=== PATIENT | female | born 2000 | race Caucasian/White ===

== ENCOUNTER 2021-07-09 08:00 | Outpatient (CLI) | payer BC, OTHER ==
[2021-07-09 17:30] LABS: BILIRUBIN,URINE NEGATIVE (NEGATIVE); CLARITY,URINE CLOUDY (CLEAR); GLUCOSE, URINE (UA) NEGATIVE (NEGATIVE); KETONES,URINE (UA) TRACE mg/dL (NEGATIVE); LEUKOCYTE ESTERASE, URINE NEGATIVE (NEGATIVE); NITRITE,URINE NEGATIVE (NEGATIVE); OCCULT BLOOD,URINE NEGATIVE (NEGATIVE); PROTEIN,URINE NEGATIVE (NEGATIVE); UROBILINOGEN,URINE 0.2 (NORMAL) E.U./dL (NORMAL)
[2021-07-09 17:37] LABS: AMORPHOUS SEDIMENT,UR Marked /LPF; BACTERIA,URINE Few /HPF (None Seen); RBC,URINE None Seen /HPF (0-5); SQUAMOUS EPITHELIAL CELL,UR RARE Squamous (<= Few); WBC,URINE 0-3 /HPF (0-5)
== END 2021-07-17 18:08 | disposition home or self-care (01) ==
LOC: LAB.WC 08:00
PROVIDERS: ATTEND Obstetrics & Gynecology
DX: Z32.01 Encounter for pregnancy test, result positive (principal)
CPT/HCPCS: 81001; 87086

== ENCOUNTER 2021-07-15 11:06 | Outpatient (CLI) | payer BC, OTHER ==
[2021-07-15 18:12] LABS: BASOPHILS % (AUTO) 0.2 %; EOSINOPHILS # (AUTO) 0.1 10^3/uL (0.0-0.7); HCT - HEMATOCRIT 39.2 % (37.0-47.0); HGB - HEMOGLOBIN 12.6 g/dL (12.0-16.0); LYMPHOCYTES # (AUTO) 1.9 10^3/uL (1.5-3.5); LYMPHOCYTES % (AUTO) 20.8 %; MEAN CORPUSCULAR HEMOGLOBIN 27.7 pg (27.0-31.0); MEAN CORPUSCULAR HGB CONC 32.1 g/dL (32.0-36.0); MEAN CORPUSCULAR VOLUME 86.2 fL (81.0-99.0); MONOCYTES # (AUTO) 0.7 10^3/uL (0.0-1.0); MONOCYTES % (AUTO) 7.6 %; NEUTROPHILS # (AUTO) 6.2 10^3/uL (1.5-6.6); NEUTROPHILS % (AUTO) 70.1 %; PLT - PLATELET COUNT 298 10^3/uL (130-450); RED BLOOD COUNT 4.55 10^6/uL (4.20-5.40); WHITE BLOOD COUNT 8.9 x10^3/uL (4.8-10.8)
[2021-07-15 18:29] LABS: ALBUMIN 3.9 g/dL (3.2-5.5); ALBUMIN/GLOBULIN RATIO 1.1 (1.0-2.2); BILIRUBIN,TOTAL 0.7 mg/dL (0.2-1.0); CALCIUM 9.3 mg/dL (8.5-10.3); CREATININE 0.7 mg/dL (0.4-1.0); POTASSIUM 3.4 mmol/L (3.5-5.0); TOTAL PROTEIN 7.4 g/dL (6.7-8.2)
[2021-07-16 11:51] LABS: HIV AG/AB 4TH GEN NON-REACTIVE (NON-REACTIVE)
[2021-07-16 15:16] LABS: HEPATITIS C ANTIBODY NON-REACTIVE (NON-REACTIVE)
[2021-07-16 16:11] LABS: HEPATITIS B SURFACE ANTIGEN NON-REACTIVE (NON-REACTIVE)
== END 2021-07-15 11:07 | disposition home or self-care (01) ==
LOC: LAB.N 11:06
PROVIDERS: ATTEND Obstetrics & Gynecology
DX: O36.4XX0 Maternal care for intrauterine death, not applicable or unspecified (principal); R03.0 Elevated blood-pressure reading, without diagnosis of hypertension
CPT/HCPCS: 36415; 80053; 81599; 85025; 86147; 86592; 86762; 86787; 86803; 86850; 86900; 86901; 87340; 87389

== ENCOUNTER 2021-07-15 11:14 | Outpatient (CLI) | payer BC, OTHER | END 2021-07-15 11:15 | disposition home or self-care (01) | LOC: LAB.N 11:14 | PROVIDERS: ATTEND Obstetrics & Gynecology | DX: O36.4XX0 Maternal care for intrauterine death, not applicable or unspecified (principal); R03.0 Elevated blood-pressure reading, without diagnosis of hypertension; Z32.01 Encounter for pregnancy test, result positive | CPT/HCPCS: 36415; 80053; 81240; 81599; 85025; 85613; 85730; 86147; 86592; 86762; 86787; 86803; 86850; 86900; 86901; 87340; 87389 ==

== ENCOUNTER 2021-07-16 08:00 | Outpatient (CLI) | payer BC, OTHER ==
[2021-07-18 18:28] LABS: CREATININE,URINE 204.4 mg/dL
== END 2021-07-16 23:59 | disposition home or self-care (01) ==
LOC: LAB.N 08:00
PROVIDERS: ATTEND Obstetrics & Gynecology
DX: Z32.01 Encounter for pregnancy test, result positive (principal); R03.0 Elevated blood-pressure reading, without diagnosis of hypertension
CPT/HCPCS: 82570; 84156

== ENCOUNTER 2021-07-31 15:30 | Outpatient (CLI) | payer BC, OTHER ==
--- NOTE | 2021-08-02 09:58 | Ultrasound Report ---
PROCEDURE: OB First Trimester INDICATIONS: POSITIVE TEST OUTSIDE/PRIOR DATING DATA: Last menstrual period (LMP): 05/27/2021. LMP-based estimated date of delivery (MIRA): 03/03/2022. First dating scan (date and location): 07/31/2021. Estimated date of delivery (MIRA) from first dating scan: 03/03/2022. The below data below was generated using the ultrasound MIRA of 03/03/2022 TECHNIQUE: Real-time scanning was performed of the fetus and maternal pelvic organs, with image documentation. The patient declined transvaginal imaging. COMPARISON: None FINDINGS: Embryo: There is an intrauterine gestational sac seen, with a pole present, which measures 2.5 cm, which corresponds to an estimated gestational age of 9 weeks 2 days. cardiac activity i s seen, with a measured heart rate of 1787 bpm. Moderate perigestational/subchorionic hemorrhage ca n be seen, which measures 1.7 x 1.5 x 1.7 cm. Measurement variability in dating: +/- 4 weeks by LMP, +/- 7 days by mean sac diameter (use before 6 weeks gestation if crown-rump length not able to be measured), +/- 5 days by crown-rump length (6-12 weeks gestation). Maternal organs: Ovaries are within normal limits, with a left ovarian corpus luteum seen. IMPRESSION: Single live intrauterine . No significant discrepancy is found between the estimated gestational age based upon these images and the estimated gestational age based upon the given date of the last menstrual period. Moderate subchorionic hemorrhage. Close clinical follow-up with serial beta hCG measurements and serial ultrasound would be recommended , as clinically appropriate. Reviewed by: Nate Garcia MD on 08/02/2021 8:56 AM [facility] Approved by: Nate Garcia MD on 08/02/2021 8:56 AM [facility] Station ID: [id number]
== END 2021-07-31 15:31 | disposition home or self-care (01) ==
LOC: DI 15:30
PROVIDERS: ATTEND Obstetrics & Gynecology
DX: O20.8 Other hemorrhage in early pregnancy (principal); Z3A.09 9 weeks gestation of pregnancy

== ENCOUNTER 2021-08-07 08:00 | Outpatient (CLI) | payer BC, OTHER ==
[2021-08-08 20:09] LABS: CHLAMYDIA TRACHOMATIS DNA NEGATIVE (NEGATIVE); NEISSERIA GONORRHOEAE DNA NEGATIVE (NEGATIVE); TRICHOMONAS VAGINALIS DNA NEGATIVE (NEGATIVE)
== END 2021-08-07 23:59 ==
LOC: LAB.WC 08:00
PROVIDERS: ATTEND Obstetrics & Gynecology
DX: O09.90 Supervision of high risk pregnancy, unspecified, unspecified trimester (principal)
CPT/HCPCS: 87491; 87591; 87661

== ENCOUNTER 2021-08-29 16:45 | Outpatient (CLI) | payer BC, OTHER ==
[2021-08-29 21:22] LABS: ALBUMIN 3.6 g/dL (3.2-5.5); BILIRUBIN,TOTAL 0.5 mg/dL (0.2-1.0); CALCIUM 8.8 mg/dL (8.5-10.3); CREATININE 0.7 mg/dL (0.4-1.0); POTASSIUM 3.3 mmol/L (3.5-5.0); TOTAL PROTEIN 7.3 g/dL (6.7-8.2)
[2021-08-29 21:25] LABS: ESTIMATED AVERAGE GLUCOSE 94 mg/dL (70-100); HEMOGLOBIN A1c% 4.9 % (4.27-6.07)
== END 2021-08-29 16:46 | disposition home or self-care (01) ==
LOC: LAB.N 16:45
PROVIDERS: ATTEND Obstetrics & Gynecology
DX: O09.90 Supervision of high risk pregnancy, unspecified, unspecified trimester (principal); O16.9 Unspecified maternal hypertension, unspecified trimester; O36.4XX0 Maternal care for intrauterine death, not applicable or unspecified
CPT/HCPCS: 36415; 80053; 81240; 81241; 81599; 83036; 85300; 85613; 85730; 86147

== ENCOUNTER 2021-09-05 08:00 | Outpatient (CLI) | payer BC, OTHER ==
[2021-09-05 17:52] LABS: BILIRUBIN,URINE NEGATIVE (NEGATIVE); GLUCOSE, URINE (UA) NEGATIVE (NEGATIVE); KETONES,URINE (UA) TRACE mg/dL (NEGATIVE); LEUKOCYTE ESTERASE, URINE NEGATIVE (NEGATIVE); NITRITE,URINE NEGATIVE (NEGATIVE); OCCULT BLOOD,URINE NEGATIVE (NEGATIVE); PH,URINE 5.5 PH (5.0-7.5); PROTEIN,URINE NEGATIVE (NEGATIVE); UROBILINOGEN,URINE 0.2 (NORMAL) E.U./dL (NORMAL)
[2021-09-05 19:12] LABS: CLARITY,URINE CLOUDY (CLEAR)
[2021-09-05 19:21] LABS: RBC,URINE None Seen /HPF (0-5); SQUAMOUS EPITHELIAL CELL,UR NONE SEEN (<= Few); WBC,URINE 0-3 /HPF (0-5)
[2021-09-05 19:22] LABS: AMORPHOUS SEDIMENT,UR Marked /LPF; BACTERIA,URINE None Seen /HPF (None Seen)
== END 2021-09-05 23:59 | disposition home or self-care (01) ==
LOC: LAB.WC 08:00
PROVIDERS: ATTEND Obstetrics & Gynecology
DX: R10.30 Lower abdominal pain, unspecified (principal)
CPT/HCPCS: 81001; 87086

== ENCOUNTER 2021-10-15 09:45 | Outpatient (CLI) | payer BC, OTHER | END 2021-10-15 09:46 | disposition home or self-care (01) | LOC: LAB.N 09:45 | PROVIDERS: ATTEND Obstetrics & Gynecology | DX: O09.90 Supervision of high risk pregnancy, unspecified, unspecified trimester (principal) | CPT/HCPCS: 36415; 82950 ==

== ENCOUNTER 2021-10-18 09:59 | Outpatient (CLI) | payer BC, OTHER ==
--- NOTE | 2021-10-18 13:23 | Ultrasound Report ---
PROCEDURE: OB Detailed Eval INDICATIONS: [facility]PER[facility] OF [facility] OUTSIDE/PRIOR DATING DATA: Last menstrual period (LMP): 05/27/2021. LMP-based estimated date of delivery (MIRA): 03/03/2022. First dating scan (date and location): 07/31/2021. Estimated date of delivery (MIRA) from first dating scan: 03/03/2022. The below data below was generated using the ultrasound MIRA of 6722 TECHNIQUE: Real-time scanning was performed of the fetus, with image documentation and biometric measurements. COMPARISON: 07/31/2021 FINDINGS: General: A single live intrauterine gestation is present. Presentation: Vertex Placenta: Placental position is anterior, without previa. Amniotic fluid index: 12.9 cm, within normal limits for gestational age. (Largest pocket 3.7 cm) heart rate: 148 beats per minute. Maternal cervical canal: 5.7 cm long; normal length is 2.5 cm or more. biometrics: Biparietal diameter: 4.8 cm equals 20 weeks 3 days Head circumference: 17.8 cm he was 20 weeks 2 days Abdominal circumference: 14.2 cm equals 19 weeks 4 days Femur length: 3.6 cm equals 21 weeks 3 days Estimated gestational age from initial scan: 20 weeks 4 days Composite gestational age from present scan: 20 weeks 2 days Estimated weight and percentile: 353 g, 38th percentile Measurement variability in biometric dating: +/- 10 days from 12-20 weeks gestation, +/- 2 weeks from 20-30 weeks gestation, +/- 3 weeks at 30 weeks gestation or later. Anatomic survey: Neuro: Ventricles are normal at less than 10 mm. Cisterna magna is normal at 3-11 mm. Cerebellum i s normal in size and morphology. Face: The facial profile is not well seen, secondary to position. Spine: Not well seen. Heart: 4-chambered heart is present, with normal ventricular outflow tracts. Diaphragm: Diaphragm is intact. Stomach: Left-sided stomach is present. Kidneys: No hydronephrosis. Normal is less than 5 mm in 2nd trimester, less than 7 mm in 3rd trimester. Cord: 3 vessel cord has orthotopic insertion. Bladder: Normal in size. Extremities: All 4 extremities are visualized. IMPRESSION: Normal interval growth compared to the prior ultrasound examination. No anatomic abnormalities are identified. However, the spine and facial profile are not well se en, secondary to position. Reviewed by: Nate Garcia MD on 10/18/2021 12:21 PM [facility] Approved by: Nate Garcia MD on 10/18/2021 12:21 PM [facility] Station ID: [id number]
== END 2021-10-18 10:00 | disposition home or self-care (01) ==
LOC: DI 09:59
PROVIDERS: ATTEND Obstetrics & Gynecology
DX: O09.92 Supervision of high risk pregnancy, unspecified, second trimester (principal); Z3A.20 20 weeks gestation of pregnancy

== ENCOUNTER 2021-10-25 16:43 | Outpatient (CLI) | payer BC, OTHER ==
--- NOTE | 2021-10-26 08:14 | Ultrasound Report ---
PROCEDURE: OB F/U or Repeat INDICATIONS: SUPERVISION OF HIGH RISK OUTSIDE/PRIOR DATING DATA: Last menstrual period (LMP): 05/27/2021. LMP-based estimated date of delivery (MIRA): 03/03/2022. First dating scan (date and location): 07/31/2021. Estimated date of delivery (MIRA) from first dating scan: 03/03/2022. TECHNIQUE: Real-time scanning was performed of the fetus, with image documentation and biometric measurements. Endovaginal scanning: None COMPARISON: 08/18/2022 FINDINGS: General: A single living intrauterine gestation is present. Presentation: Vertex Placenta: Placental position is anterior, without previa. Amniotic fluid index: 11.6 cm, normal for gestational age. heart rate: 148 beats per minute. Maternal cervical canal: 7.3 cm long; normal length is 2.5 cm or more. Estimated gestational age from initial scan: 21 week 4 day. Other: spine, facial profile, face/lips/orbits , as well as the chest, stomach, kidneys and basia dder are well visualized and within normal limits. IMPRESSION: Single live intrauterine consistent with with a 21 week 4 day gestation Well-visualized unremarkable anatomy includes spine and facial profile Reviewed by: Connor Barreto MD on 10/26/2021 7:12 AM [place] Approved by: Connor Barreto MD on 10/26/2021 7:12 AM [place] Station ID: [id number]
== END 2021-10-25 16:44 | disposition home or self-care (01) ==
LOC: DI 16:43
PROVIDERS: ATTEND Obstetrics & Gynecology
DX: O09.92 Supervision of high risk pregnancy, unspecified, second trimester (principal); Z3A.21 21 weeks gestation of pregnancy

== ENCOUNTER 2021-10-30 21:35 | Outpatient (CLI) | payer BC, OTHER ==
[2021-10-30 21:58] VITALS: BP 117/68
[2021-10-30 22:22] LABS: BILIRUBIN,URINE NEGATIVE (NEGATIVE); GLUCOSE, URINE (UA) NEGATIVE (NEGATIVE); KETONES,URINE (UA) NEGATIVE (NEGATIVE); LEUKOCYTE ESTERASE, URINE NEGATIVE (NEGATIVE); NITRITE,URINE NEGATIVE (NEGATIVE); OCCULT BLOOD,URINE NEGATIVE (NEGATIVE); PROTEIN,URINE NEGATIVE (NEGATIVE); UROBILINOGEN,URINE 0.2 (NORMAL) E.U./dL (NORMAL)
[2021-10-30 22:35] LABS: BACTERIA,URINE Rare /HPF (None Seen); CLARITY,URINE CLEAR (CLEAR); RBC,URINE 0-5 /HPF (0-5); SQUAMOUS EPITHELIAL CELL,UR FEW Squamous (<= Few); WBC,URINE 0-3 /HPF (0-5)
--- NOTE | 2021-10-30 23:23 | PROVIDER PROGRESS NOTE ---
- HPI Current : Vital Signs Temperature 98.8 F 10/30/21 21:57 Heart Rate 110 H 10/30/21 21:57 Respiratory Rate 18 10/30/21 21:57 Blood Pressure 117/68 10/30/21 21:57 O2 Saturation 100 10/30/21 21:57 Temperature 98.8 F 10/30/21 22:21 Heart Rate 110 H 10/30/21 21:57 Respiratory Rate 18 10/30/21 21:57 Blood Pressure 117/68 10/30/21 21:57 O2 Saturation 100 10/30/21 21:57 - Procedures Procedure Details: ID: 21 yo at 22+2 wga here for assessment of labor. HPI: Patient reports that she had several runs of cramping that seemed to be worsening. Several contractions within a ten minute period with 2-3 episodes of 10 minutes. No LOF or VB. Endorses FM. No contractions at present. Hx of IUFD at 19 weeks further traumatized by complications at delivery. PNC: LMP:05/27/2021 MIRA BY LMP:03/03/2022 Initial U/S on 07/31 @ 9w 2d c/w LMP FINAL MIRA: 03/03/2022 hx IUFD: labs wnl -Possible uterine perforation with pp D&C -Request for outside previously sent CHTN: Monitoring at home. -Labetalol 100 mg po BID--> pt reduced dose to 50 mg po bid due to low DBPS O pos/Rubella : IMMUNE VZV: IMMUNE Genetic testing: Declined testing And MFM consult- confirmed FAS: 10/18/2021 anterior, 3VC, 5.7 CL, FAS wnl, need fu for spine and facies. her fu us was normal. FAS complete. 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 Safe at home FH: Family History of Other Medical Problems for Father, Essential Tremor Disorder; Parkinsonism - Entered On: 07/09/2021 Family History of Diabetes for Father - Entered On: 07/09/2021 Family History of Seizures for AuntMacie (paternal) - Entered On: 07/09/2021 Family History of Arthritis for Aunt - Entered On: 07/09/2021 Family History of Other Medical Problems for Aunt, Thereasa (paternal): Raynaud's phenomenon, adrenal gland exhaustion, appendicitis, arthritis Yue (paternal): nephritis, scleritis, ulcerative colitis, autoimmune hepatitis, thyroiditis, fibromyalgia, appendicitis, cholectomy, bronchiectasis, esophageal dysmotility, currently being tested for lupus and scleroderma. - Entered On: 07/09/2021 Family History of Other Cancer for Uncle, Prostate cancer x2 maternal uncles - Entered On: 07/09/2021 Family History of Other Cancer for Maternal Grandfather - Entered On: 07/09/2021 Family History of Breast Cancer for Paternal Grandmother - Entered On: 07/09/2021 Family History of Arthritis for Paternal Grandmother - Entered On: 07/09/2021 Family History of Kidney/Renal Disease for Paternal Grandmother, kidney cancer - Entered On: 07/09/2021 Family History of Arthritis for Paternal Grandfather, Rheumatoid - Entered On: 07/09/2021 Family History of Diabetes for Paternal Grandfather - Entered On: 07/09/2021 ROS: As per HPI, otherwise remaining systems are negative PE: VS: 98.8 110 117/68 18 100 GEN: NAD HEAD: NCAT EYES: No scleral icterus or conjunctival injection CV: RRR RESP: CTAB, normal effort ABD: S&NT/ND PSYCH: appropriate affect NEURO: alert and oriented, normal gait and coordination EXT: WWP SSE: visually closed and long per RN exam FORMAL US showed TVCL 3.4 (read images myself) FFN neg UA wnl FHT: 154 NST not performed; previable TOCO: quiet A/P: 21 yo at 22+2 wga here for assessment of labor. FALSE LABOR: -Reassuring physical exam -Neg FFN -TVCL>3 cm No evidence of cervical change Symptoms resolved Patient discharged to home with warning signs reviewed DX: False labor
--- NOTE | 2021-10-31 00:04 | Ultrasound Report ---
PROCEDURE: OB Limited INDICATIONS: contractions OUTSIDE/PRIOR DATING DATA: Last menstrual period (LMP): 05/27/2021. LMP-based estimated date of delivery (MIRA): 03/03/2022. First dating scan (date and location): 07/31/2021. Estimated date of delivery (MIRA) from first dating scan: 03/03/2022. The below data below was generated using the clinical and ultrasound MIRA of 03/03/2022 TECHNIQUE: Real-time scanning was performed of the fetus, with image documentation. COMPARISON: OB ultrasound 10/25/2021 FINDINGS: A single living intrauterine gestation is present. Presentation: Vertex Placenta: Placental position is anterior, without previa. Amniotic fluid index: 15.4 cm, within normal limits for gestational age. Largest pocket 4.2 cm heart rate: 157 beats per minutes. Maternal cervical canal: 3.4 cm long; normal length is 2.5 cm or more. Estimated gestational age from initial scan: 22 weeks 2 days. IMPRESSION: Single live intrauterine with ultrasound age of 22 weeks 2 days. Reviewed by: Bryanna Kan MD on 10/31/2021 12:03 AM PST Approved by: Bryanna Kan MD on 10/31/2021 12:03 AM PST Station ID: [id number]
[2021-10-31 00:15] LABS: BACTERIAL VAGINOSIS DNA NEGATIVE (NEGATIVE); CANDIDA GLABRATA DNA NEGATIVE (NEGATIVE); CANDIDA GROUP DNA NEGATIVE (NEGATIVE); CANDIDA KRUSEI DNA NEGATIVE (NEGATIVE); TRICHOMONAS VAGINALIS DNA NEGATIVE (NEGATIVE)
[2021-10-31 01:27] LABS: CHLAMYDIA TRACHOMATIS DNA NEGATIVE (NEGATIVE); NEISSERIA GONORRHOEAE DNA NEGATIVE (NEGATIVE); TRICHOMONAS VAGINALIS DNA NEGATIVE (NEGATIVE)
== END 2021-10-30 23:21 | disposition home or self-care (01) ==
LOC: WFO 21:35 → FBP 21:36 → WFO 23:21
PROVIDERS: ATTEND Obstetrics & Gynecology
DX: O47.02 False labor before 37 completed weeks of gestation, second trimester (principal); O09.292 Supervision of pregnancy with other poor reproductive or obstetric history, second trimester; Z3A.22 22 weeks gestation of pregnancy
CPT/HCPCS: 36415; 81001; 82731; 87086; 87491; 87591; 87661; 87801; 99215

== ENCOUNTER 2021-11-09 07:54 | Outpatient (CLI) | payer BC, OTHER ==
--- NOTE | 2021-11-09 10:49 | Ultrasound Report ---
PROCEDURE: Right upper quadrant ultrasound INDICATIONS: RIGHT UPPER QUAD ABD PAIN TECHNIQUE: Real-time focused scanning was performed of the abdomen, with image documentation. COMPARISON: None FINDINGS: Liver: Normal is size and echotexture. No evidence of focal mass lesion. No intra hepatic biliary ductal dilatation. Gallbladder: Sonolucent without cholelithiasis. No gallbladder wall thickening. No pericholecystic fluid or Blevins's sign. Common Bile Duct: 3 mm. Pancreas: Unremarkable as visualized. Right Kidney: Appropriate in size and echotexture. No evidence of hydronephrosis. No shadowing calc alejandra. No solid or cystic mass lesion. IMPRESSION: Unremarkable right upper quadrant ultrasound Reviewed by: Connor Barreto MD on 11/09/2021 9:47 AM [place] Approved by: Connor Barreto MD on 11/09/2021 9:47 AM [facility] Station ID: [id number]
== END 2021-11-09 07:55 | disposition home or self-care (01) ==
LOC: DI 07:54
PROVIDERS: ATTEND Obstetrics & Gynecology
DX: O99.891 Other specified diseases and conditions complicating pregnancy (principal); R10.11 Right upper quadrant pain; Z3A.01 Less than 8 weeks gestation of pregnancy

== ENCOUNTER 2021-12-22 11:54 | Outpatient (CLI) | payer BC, OTHER ==
[2021-12-22 18:01] LABS: HCT - HEMATOCRIT 34.5 % (37.0-47.0); HGB - HEMOGLOBIN 11.5 g/dL (12.0-16.0); MEAN CORPUSCULAR HEMOGLOBIN 28.3 pg (27.0-31.0); MEAN CORPUSCULAR HGB CONC 33.3 g/dL (32.0-36.0); MEAN PLATELET VOLUME 10.4 fL (7.9-10.8); RED BLOOD COUNT 4.06 10^6/uL (4.20-5.40); RED CELL DISTRIBUTION WIDTH 12.6 % (12.0-15.0)
== END 2021-12-22 11:55 | disposition home or self-care (01) ==
LOC: LAB.N 11:54
PROVIDERS: ATTEND Obstetrics & Gynecology
DX: Z36.89 Encounter for other specified antenatal screening (principal)
CPT/HCPCS: 36415; 82950; 85027

== ENCOUNTER 2022-01-06 16:55 | Outpatient (CLI) | payer BC, OTHER ==
--- NOTE | 2022-01-07 17:05 | Ultrasound Report ---
PROCEDURE: OB F/U or Repeat INDICATIONS: SUPERVISION OF HIGH RISK OUTSIDE/PRIOR DATING DATA: Last menstrual period (LMP): 05/27/2021. LMP-based estimated date of delivery (MIRA): 03/03/2022. First dating scan (date and location): 07/31/2021. Estimated date of delivery (MIRA) from first dating scan: 03/03/2022. The below data below was generated using the ultrasound MIRA of 03/03/2022 TECHNIQUE: Real-time scanning was performed of the fetus, with image documentation and biometric measurements. COMPARISON: None. FINDINGS: General: A single living intrauterine gestation is present. Presentation: Cephalic Placenta: Placental position is anterior, without previa. Amniotic fluid index: 13.6 cm, within normal limits for gestational age. heart rate: 141 beats per minute. Maternal cervical canal: 4.2 cm long; normal length is 2.5 cm or more. biometrics: Biparietal diameter: 8.09 cm, 32 weeks 3 days Head circumference: 29.55 cm, 32 weeks 5 days Abdominal circumference: 27 25 cm, 31 weeks 6 days Femur length: 6.25 cm, 32 weeks 3 days Estimated gestational age from initial scan: 32 weeks 0 days Composite gestational age from present scan: 32 weeks 3 days Estimated weight and percentile: 1917 g, 44.3% Measurement variability in biometric dating: +/- 10 days from 12-20 weeks gestation, +/- 2 weeks from 20-30 weeks gestation, +/- 3 weeks at 30 weeks gestation or more. Other: Not applicable. IMPRESSION: 1. Living third trimester intrauterine . Ultrasound age is 3 days greater than clinical age based on both LMP and initial ultrasound. No sonographic evidence of complications. Reviewed by: Lucio Franklin MD on 01/07/2022 5:04 PM PDT Approved by: Lucio Franklin MD on 01/07/2022 5:04 PM PDT Station ID: [id number]
== END 2022-01-06 16:56 | disposition home or self-care (01) ==
LOC: DI 16:55
PROVIDERS: ATTEND Obstetrics & Gynecology
DX: O09.93 Supervision of high risk pregnancy, unspecified, third trimester (principal); O16.3 Unspecified maternal hypertension, third trimester; Z3A.32 32 weeks gestation of pregnancy

== ENCOUNTER 2022-01-14 13:59 | Outpatient (CLI) | payer BC, OTHER ==
[2022-01-14 14:10] VITALS: BP 143/75
[2022-01-14 15:24] LABS: BILIRUBIN,URINE NEGATIVE (NEGATIVE); GLUCOSE, URINE (UA) NEGATIVE (NEGATIVE); KETONES,URINE (UA) NEGATIVE (NEGATIVE); LEUKOCYTE ESTERASE, URINE NEGATIVE (NEGATIVE); NITRITE,URINE NEGATIVE (NEGATIVE); OCCULT BLOOD,URINE NEGATIVE (NEGATIVE); PROTEIN,URINE NEGATIVE (NEGATIVE); UROBILINOGEN,URINE 0.2 (NORMAL) E.U./dL (NORMAL)
[2022-01-14 15:27] LABS: CLARITY,URINE CLEAR (CLEAR)
[2022-01-14 15:36] LABS: RUPTURE OF MEMBRANES PLUS NEGATIVE (NEGATIVE)
--- NOTE | 2022-01-14 16:38 | Ultrasound Report ---
PROCEDURE: OB Limited INDICATIONS: leakage of fluid TECHNIQUE: Real-time scanning was performed of the fetus, with image documentation. Endovaginal scanning: Not performed COMPARISON: 01/06/2022 FINDINGS: A single living intrauterine gestation is present. Presentation: Cephalic Placenta: Placental position is anterior, without previa. Amniotic fluid index: 12.7 cm, normal for gestational age and decreased slightly from 13.6 cm on 01/06 exam. heart rate: 147 beats per minutes. Maternal cervical canal: 3.7 cm long; normal length is 2.5 cm or more. IMPRESSION: Single live intrauterine gestation. CODEY is normal, all though slightly decreased from 13.6cm on the prior study. Reviewed by: Preston Navarrete MD on 01/14/2022 4:36 PM PDT Approved by: Preston Navarrete MD on 01/14/2022 4:36 PM PDT Station ID: [id number]
[2022-01-14 17:09] LABS: BACTERIAL VAGINOSIS DNA NEGATIVE (NEGATIVE); CANDIDA KRUSEI DNA NEGATIVE (NEGATIVE)
[2022-01-14 17:10] LABS: CANDIDA GLABRATA DNA NEGATIVE (NEGATIVE); CANDIDA GROUP DNA NEGATIVE (NEGATIVE); TRICHOMONAS VAGINALIS DNA NEGATIVE (NEGATIVE)
[2022-01-14 23:37] LABS: CHLAMYDIA TRACHOMATIS DNA NEGATIVE (NEGATIVE); NEISSERIA GONORRHOEAE DNA NEGATIVE (NEGATIVE)
--- NOTE | 2022-01-23 16:17 | PROVIDER PROGRESS NOTE ---
- HPI Chief Complaint: Labor Check Current : Current EDU 03/03/22 Gestation 33 Weeks and 1 Days 2 Para 0 Vital Signs Temperature 98.6 F 01/14/22 14:08 Heart Rate 105 H 01/14/22 14:08 Respiratory Rate 22 01/14/22 14:08 Blood Pressure 143/75 H 01/14/22 14:08 O2 Saturation 99 01/14/22 14:08 Temperature 98.6 F 01/14/22 14:10 Heart Rate 105 H 01/14/22 14:08 Respiratory Rate 22 01/14/22 14:08 Blood Pressure 143/75 H 01/14/22 14:08 O2 Saturation 99 01/14/22 14:08 - Procedures OB Procedure Performed: NST NST Procedure: NST Procedure Start Date 01/14/22 Start Time 14:10 Stop Time 15:30 Vibroacoustic Stimulation Used No Patient States Movement Yes EFM 150 mod damaso 15x15 accels no decels TOCO: irritability Service Date of procedure: 01/14/22 Procedure Details: ID: Patient is a 21 yo at 33+1 wga with complicated by CHTN here with back pain, abdominal pain, and increased vaginal discharge concerning for labor. HPI: Patient reports ongoing back and abdominal pain with increased vaginal discharge. No gross loss of fluid and no on-going fluid loss. No VB. Endorses FM. Has CHTN with mildly elevated blood pressures consistent with baseline. Taking labetalol 50 mg po bid. No LANDEROS/vision change/RUQ pain. PNC: LMP:05/27/2021 MIRA BY LMP:03/03/2022 Initial U/S on 07/31 @ 9w 2d c/w LMP FINAL MIRA: 03/03/2022 hx IUFD: labs wnl -Possible uterine perforation with pp D&C -Request for outside previously sent [place] anemia: once daily iron and vit C ordered CHTN: Monitoring at home. -Labetalol 100 mg po BID--> pt reduced dose to 50 mg po bid due to low DBPS -Ordered us for growth at 32 weeks on 12/10/21 for week for 01/10/22 -Twice weekly NST/BPP ordered. O pos/Rubella : IMMUNE VZV: IMMUNE Genetic testing: Declined testing And MFM consult- confirmed FAS: 10/18/2021 anterior, 3VC, 5.7 CL, FAS wnl, need fu for spine and facies. her fu us was normal. FAS complete.GIRL- [place] Glucola - Early glucola 103, 1 hour gtt 117 Influenza: declines Covid vaccine: declines TDAP:12/10/21 GBS:at 36 weeks HSV: Denies self and partner Breast pump Rx: given 11/26/21 MOD: anticipate , Jose Manuel. 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 Rhianna has immediate family in [place]. 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 Safe at home FH: Family History of Other Medical Problems for Father, Essential Tremor Disorder; Parkinsonism Family History of Diabetes for Father Family History of Seizures for Aunt, Macie (paternal) Family History of Arthritis for Aunt Family History of Other Medical Problems for Aunt, Thereasa (paternal): Raynaud's phenomenon, adrenal gland exhaustion, appendicitis, arthritis Yue (paternal): nephritis, scleritis, ulcerative colitis, autoimmune hepatitis, thyroiditis, fibromyalgia, appendicitis, cholectomy, bronchiectasis, esophageal dysmotility, currently being tested for lupus and scleroderma. - Family History of Other Cancer for Uncle, Prostate cancer x2 maternal uncles Family History of Other Cancer for Maternal Grandfather Family History of Breast Cancer for Paternal Grandmother Family History of Arthritis for Paternal Grandmother Family History of Kidney/Renal Disease for Paternal Grandmother, kidney cancer Family History of Arthritis for Paternal Grandfather, Rheumatoid Family History of Diabetes for Paternal Grandfather ROS: As per HPI, otherwise remaining systems are negative. PE: VS: 98.6 105 22 99% 143/75 GEN: NAD HEAD: NCAT EYES: No scleral icterus or conjunctival injection CV: RRR RESP: CTAB, normal effort ABD: S&NT/ND PSYCH: appropriate affect NEURO: alert and oriented, normal gait and coordination EXT: WWP SVE: Cervix high and unreachable per RN exam FORMAL US: TVCL 3.7 cm CODEY wnl FFN neg Vaginitis panel neg for yeast/BV/trich GCCT neg GBS neg Urinanalysis wnl A/P: Patient is a 21 yo at 33+1 wga with complicated by CHTN here with back pain, abdominal pain, and increased vaginal discharge concerning for labor. FALSE LABOR: Reassured patient regarding negative FFN and cervical length that is longer than expected for gestational age -Can use magnesium for constipation and as mild muscle relaxant -Warning signs reviewed -No evidence of vaginal or urinary infection VAGINAL DISCHARGE: -Normal CODEY and no evidence of LOF -GCCT and vaginitis panel reassuring FWB: vertex by formal US -Cat I tracing Warning signs reviewed Discharged to home with routine OB fu DX: False labor IUP at 33+1 wga CHTN DOS: 01/14/22 NST read: 01/14/22
== END 2022-01-14 16:58 | disposition home or self-care (01) ==
LOC: WFO 13:59 → FBP 14:00 → WFO 16:58
PROVIDERS: ATTEND Obstetrics & Gynecology
DX: O47.03 False labor before 37 completed weeks of gestation, third trimester (principal); Z3A.33 33 weeks gestation of pregnancy; O99.891 Other specified diseases and conditions complicating pregnancy; N89.8 Other specified noninflammatory disorders of vagina; O16.3 Unspecified maternal hypertension, third trimester; O99.013 Anemia complicating pregnancy, third trimester
CPT/HCPCS: 36415; 59025; 81001; 81003; 81514; 82731; 84112; 87086; 87491; 87591; 87661; 87797; 99215

== ENCOUNTER 2022-01-16 13:49 | Outpatient (CLI) | payer BC, OTHER ==
[2022-01-16 15:22] VITALS: BP 134/67
--- NOTE | 2022-01-16 17:40 | PROCEDURE REPORT ---
- HPI Current EDU 03/03/22 Gestation 33 Weeks and 3 Days 2 Para 0 Vital Signs Temperature 97.6 F L 01/16/22 13:58 Heart Rate 98 01/16/22 13:58 Respiratory Rate 17 01/16/22 13:58 Blood Pressure 134/67 H 01/16/22 13:58 Temperature 97.6 F L 01/16/22 14:10 Heart Rate 98 01/16/22 14:10 Respiratory Rate 17 01/16/22 14:10 Blood Pressure 134/67 H 01/16/22 14:10 O2 Saturation 98 01/16/22 14:10 - NST Procedure NST Procedure Start Date 01/16/22 Start Time 14:10 Stop Time 14:50 Vibroacoustic Stimulation Used No Patient States Movement Yes - Results and Plan Plan: Patient is a 21-year-old -0-1-0 at 33 weeks 3 days gestation here for scheduled NST. NST Performed 01/16/2022 NST Read 01/16/2022 FHT: 135 bpm baseline, moderate variability, accelerations resin, no decelerations. [place]: Quiescent Diagnosis 33 weeks gestation Chronic hypertension controlled with medications History of IUFD Continue with twice weekly NST.
== END 2022-01-16 15:15 | disposition home or self-care (01) ==
LOC: WFO 13:49 → FBP 13:53 → WFO 15:15
PROVIDERS: ATTEND Obstetrics & Gynecology
DX: O16.3 Unspecified maternal hypertension, third trimester (principal); Z3A.33 33 weeks gestation of pregnancy
CPT/HCPCS: 59025

== ENCOUNTER 2022-01-20 19:35 | Outpatient (CLI) | payer BC, OTHER ==
[2022-01-20 19:59] VITALS: BP 123/66
--- NOTE | 2022-01-21 15:23 | Ultrasound Report ---
PROCEDURE: OB Bio w/Non Stress INDICATIONS: CHRONIC HYPERTENSION COMPLICATIND /OR REASON FOR CARE DURING OUTSIDE/PRIOR DATING DATA: Last menstrual period (LMP): 05/27/2021. LMP-based estimated date of delivery (MIRA): 03/03/2022. First dating scan (date and location): 07/31/2021. Estimated date of delivery (MIRA) from first dating scan: 03/03/2022. TECHNIQUE: Real-time scanning was performed of the fetus, with image documentation and biometric ashu surements. Biophysical profile was also obtained. COMPARISON: OB ultrasound 07/31/2021, 01/14/2022 FINDINGS: General: A single living intrauterine gestation is present. Presentation: Vertex Placenta: Placental position is anterior, without previa. Amniotic fluid index: 11.2 cm, within normal limits for gestational age. Largest pocket 4.2 cm heart rate: 141 beats per minute. Maternal cervical canal: Not evaluatedor more. biometrics: Estimated gestational age from initial scan: 34 weeks 0 days Biophysical profile: Tone: 2 points. Movement: 2 points. Respiration: 2 points. Largest pocket of fluid: 2 points. Umbilical artery Doppler: 2.4, 2.8, 2.6 IMPRESSION: Single live intrauterine with gestational age of 34 weeks 0 days. BPP 8 out of 8. Reviewed by: Bryanna Kan MD on 01/21/2022 3:22 PM PDT Approved by: Bryanna Kan MD on 01/21/2022 3:22 PM PDT Station ID: [id number]
--- NOTE | 2022-01-22 11:03 | PROCEDURE REPORT ---
- HPI Current EDU 03/03/22 Gestation 34 Weeks and 0 Days 2 Para 0 Vital Signs Temperature 98.2 F 01/20/22 19:51 Heart Rate 106 H 01/20/22 19:51 Respiratory Rate 16 01/20/22 19:51 Blood Pressure 123/66 01/20/22 19:51 Temperature 98.2 F 01/20/22 19:51 Heart Rate 106 H 01/20/22 19:51 Respiratory Rate 16 01/20/22 19:51 Blood Pressure 123/66 01/20/22 19:51 O2 Saturation - NST Procedure NST Procedure Start Date 01/20/22 Start Time 19:47 Stop Time 20:22 Vibroacoustic Stimulation Used No Patient States Movement Yes - Results and Plan Plan: Patient is a 21-year-old -0-1-0 at 34 weeks 0 days gestation here for scheduled NST. NST Performed 01/20/2022 NST Read 01/20/2022 FHT: 140 bpm baseline, moderate variability, accelerations present, no decelerations. [place]: Quiescent Diagnosis 34 weeks gestation Chronic hypertension controlled medications History of IUFD Continue with twice weekly NST.
== END 2022-01-20 20:28 | disposition home or self-care (01) ==
LOC: WFO 19:35 → FBP 19:42 → DI 20:28
PROVIDERS: ATTEND Obstetrics & Gynecology
DX: O10.913 Unspecified pre-existing hypertension complicating pregnancy, third trimester (principal); O09.293 Supervision of pregnancy with other poor reproductive or obstetric history, third trimester; Z3A.34 34 weeks gestation of pregnancy; Z79.899 Other long term (current) drug therapy
CPT/HCPCS: 59025

== ENCOUNTER 2022-01-23 13:58 | Outpatient (CLI) | payer BC, OTHER ==
[2022-01-23 14:12] VITALS: BP 129/84
--- NOTE | 2022-01-23 16:27 | Labor Flowsheet ---
Labor Flowsheet Datetime Report Generated by CPN: 01/23/2022 16:26 Datetime: 01/23/2022 14:09 VITAL SIGNS NBP Sys/Elizabeth/Mean (mmHg): 129 : 84 : 93 Pulse: 123 Datetime: 01/20/2022 19:59 SpO2 (%): 100 Datetime: 10/30/2021 21:52 ASSESSMENT A Comments: Doppler FHR 154bpm
--- NOTE | 2022-01-23 16:56 | Ultrasound Report ---
PROCEDURE: OB Biophysical Profile INDICATIONS: nonreactive stress test OUTSIDE/PRIOR DATING DATA: Last menstrual period (LMP): 05/27/2021. LMP-based estimated date of delivery (MIRA): 03/03/2022. First dating scan (date and location): 07/31/2021. Estimated date of delivery (MIRA) from first dating scan: 03/03/2022. TECHNIQUE: Real-time scanning was performed of the fetus, with image documentation. Biophysical pro file was also obtained. Endovaginal scanning: Not indicated COMPARISON: 01/20/2022, 01/14/2022, 01/06/2022, 10/30/2021. FINDINGS: General: A single living intrauterine gestation is present. Presentation: Vertex Placenta: Placental position is anterior, without previa. Amniotic fluid index: 10.2 cm, normal for gestational age. heart rate: 157 beats per minute. Maternal cervical canal : Not evaluated. Estimated gestational age from initial scan: 34 weeks, 3 days. Biophysical profile: Tone: 2 points. Movement: 2 points. Respiration: 2 points. Largest pocket of fluid: 2 points. facial profile is well visualized and is within normal limits. IMPRESSION: 1. Single live intrauterine gestation with fetus in vertex presentation. heart rate is 148 bpm. Normal amount of amniotic fluid. 2. biophysical profile score is 8 out of 8. 3. facial profile isn't well visualized on the current study and is within normal limits. Reviewed by: Nitin Wells MD on 01/23/2022 4:55 PM PDT Approved by: Nitin Wells MD on 01/23/2022 4:55 PM PDT Station ID: [id number]
--- NOTE | 2022-01-23 17:34 | PROCEDURE REPORT ---
- HPI Diagnosis/Indication for NST: Gestational Hypertension Vital Signs Temperature 97.9 F 01/23/22 14:00 Heart Rate 120 H 01/23/22 14:00 Respiratory Rate 18 01/23/22 14:00 Blood Pressure 129/84 H 01/23/22 14:00 Temperature 97.9 F 01/23/22 14:00 Heart Rate 120 H 01/23/22 14:00 Respiratory Rate 18 01/23/22 14:00 Blood Pressure 129/84 H 01/23/22 14:00 O2 Saturation - NST Procedure NST Procedure Start Time 14:03 Stop Time 14:46 - Results and Plan Plan: Patient is a 21-year-old -0-1-0 at 34 weeks 3 days gestation here for scheduled NST. NST Performed 01/23/2022 NST Read 01/23/2022 FHT: 135 bpm baseline, moderate variability, accelerations present, no decelerations. [place]: Quiescent Accels no initially present; later cat I after several attempts at VAS Given difficulty with obtaining reactive tracing, proceeded with BPP BPP 8/8 Reassuring assessment Diagnosis 34 weeks gestation Chronic hypertension controlled medications History of IUFD Continue with twice weekly NST.
== END 2022-01-23 15:50 | disposition home or self-care (01) ==
LOC: WFO 13:58 → FBP 14:01 → WFO 15:50
PROVIDERS: ATTEND Obstetrics & Gynecology
DX: O13.3 Gestational [pregnancy-induced] hypertension without significant proteinuria, third trimester (principal); Z3A.34 34 weeks gestation of pregnancy; Z87.59 Personal history of other complications of pregnancy, childbirth and the puerperium
CPT/HCPCS: 59025; 99214

== ENCOUNTER 2022-01-27 13:33 | Outpatient (CLI) | payer BC, OTHER ==
[2022-01-27 13:57] VITALS: BP 116/86
--- NOTE | 2022-01-27 14:09 | PROCEDURE REPORT ---
- HPI Current EDU 03/03/22 Gestation 35 Weeks and 0 Days 2 Para 0 Vital Signs Temperature 97.9 F 01/27/22 13:40 Heart Rate 120 H 01/27/22 13:40 Respiratory Rate 18 01/27/22 13:40 Blood Pressure 116/86 H 01/27/22 13:40 Temperature 97.9 F 01/27/22 13:40 Heart Rate 120 H 01/27/22 13:40 Respiratory Rate 18 01/27/22 13:40 Blood Pressure 116/86 H 01/27/22 13:40 O2 Saturation - NST Procedure NST Procedure Start Date 01/27/22 Start Time 13:43 Stop Time 14:06 Vibroacoustic Stimulation Used No Patient States Movement Yes - Results and Plan Plan: Patient is a 21-year-old -0-1-0 at 35 weeks 0 days gestation here for scheduled NST. NST Performed 01/27/2022 NST Read 01/27/2022 FHT: 145 bpm baseline, moderate variability, accelerations present, no decelerations. [place]: Quiescent Diagnosis 35 weeks gestation Chronic hypertension controlled on medications History of IUFD Continue with twice weekly NST.
--- NOTE | 2022-01-27 17:27 | Ultrasound Report ---
PROCEDURE: OB Biophysical Profile INDICATIONS: HYPERTENSION OUTSIDE/PRIOR DATING DATA: Last menstrual period (LMP): 05/27/2021. LMP-based estimated date of delivery (MIRA): 03/03/2022. First dating scan (date and location): 07/31/2021. Estimated date of delivery (MIRA) from first dating scan: 03/03/2022. The below data below was generated using the ultrasound MIRA of 03/03/2022 TECHNIQUE: Real-time scanning was performed of the fetus, with image documentation and biometric ashu surements. Biophysical profile was also obtained. COMPARISON: OB ultrasound 07/31/2021, 01/23/2022 FINDINGS: General: A single living intrauterine gestation is present. Presentation: Vertex Placenta: Placental position is anterior, without previa. Amniotic fluid index: 3.9 cm, decreased for gestational age. Largest pocket measures 3.9 cm. It is noted prior composite CODEY was 10.2 cm with largest pocket 4.9 cm on 01/23/2022. heart rate: 147 beats per minute. Maternal cervical canal: 3.9 cm long; normal length is 2.5 cm or more. biometrics: Estimated gestational age from initial scan: 35 weeks 0 days . Biophysical profile: Tone: 2 points. Movement: 2 points. Respiration: 2 points. Largest pocket of fluid: 2 points. Umbilical artery Doppler: 2.9, 2.1, 2.2 IMPRESSION: Single live intrauterine with ultrasound gestational age of 35 weeks 0 days. CODEY has decreased compared to prior exam, with current value is consistent with oligohydramnios. Shor t interval imaging follow-up is recommended. Reviewed by: Bryanna Kan MD on 01/27/2022 4:26 PM BECKY Approved by: Bryanna Kan MD on 01/27/2022 4:26 PM BECKY Station ID: [id number]
== END 2022-01-27 14:05 | disposition home or self-care (01) ==
LOC: WFO 13:33 → FBP 13:35 → WFO 14:05 → FBP 14:15 → WFO 14:15
PROVIDERS: ATTEND Obstetrics & Gynecology
DX: O16.3 Unspecified maternal hypertension, third trimester (principal); O09.293 Supervision of pregnancy with other poor reproductive or obstetric history, third trimester; Z3A.35 35 weeks gestation of pregnancy
CPT/HCPCS: 59025

== ENCOUNTER 2022-01-28 12:01 | Outpatient (CLI) | payer BC, OTHER ==
[2022-01-28 12:18] VITALS: BP 125/55
[2022-01-28 13:22] LABS: RUPTURE OF MEMBRANES PLUS NEGATIVE (NEGATIVE)
--- NOTE | 2022-01-30 14:01 | PROVIDER PROGRESS NOTE ---
- HPI Chief Complaint: Leakage of vaginal fluid Current : Current EDU 03/03/22 Gestation 35 Weeks and 1 Days 2 Para 0 Vital Signs Temperature 98.6 F 01/28/22 12:12 Heart Rate 103 H 01/28/22 12:12 Respiratory Rate 16 01/28/22 12:12 Blood Pressure 125/55 L 01/28/22 12:12 Temperature 98.6 F 01/28/22 14:33 Heart Rate 103 H 01/28/22 14:33 Respiratory Rate 16 01/28/22 14:33 Blood Pressure 125/55 L 01/28/22 14:33 O2 Saturation - Procedures OB Procedure Performed: NST NST Procedure: NST Procedure Start Date 01/28/22 Start Time 12:30 Stop Time 12:52 Vibroacoustic Stimulation Used No Patient States Movement Yes EFM: 140 mod damaso 15x15 accels no decels TOCO: quiet Service Date of procedure: 01/28/22 - Plan Plan: ID: Patient is a 21 yo at 35+1 wga who presents for assessment of membrane status in the setting of new onset oligohydramnios. HPI: Patient had a BPP on 01/27/22 that showed an CODEY of 3.9. Total BPP was 6/8 based on fluid levels. She was contacted by the provider who recommended that she be evaluated for leakage of fluid. Patient reports that she is having an increase in watery dischange and has been changing her her underwear twice a day. No large gushes of fluid. She is not soaking clothign or bedding. Does not passively have a trickle. No contractions or VB. Endorses FM. PNC: LMP:05/27/2021 MIRA BY LMP:03/03/2022 Initial U/S on 07/31 @ 9w 2d c/w LMP FINAL MIRA: 03/03/2022 hx IUFD: labs wnl -Possible uterine perforation with pp D&C -Request for outside previously sent Bordeline anemia: once daily iron and vit C ordered CHTN: Monitoring at home. -Labetalol 100 mg po BID--> pt reduced dose to 50 mg po bid due to low DBPS -Ordered us for growth at 32 weeks on 12/10/21 for week for 01/10/22 EFW 44.3% on 01/06/22 -Twice weekly NST/BPP ordered. O pos/Rubella : IMMUNE VZV: IMMUNE Genetic testing: Declined testing And MFM consult- confirmed FAS: 10/18/2021 anterior, 3VC, 5.7 CL, FAS wnl, need fu for spine and facies. her fu us was normal. FAS complete.GIRL- [place]iana Glucola - Early glucola 103, 1 hour gtt 117 Influenza: declines Covid vaccine: declines TDAP:12/10/21 GBS:at 36 weeks- will re draw given collection at 34 weeks will prior to iOL at 39 weeks HSV: Denies self and partner Breast pump Rx: given 11/26/21 MOD: anticipate , Jose Manuel. 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 [employer] No JOSE Safe at home Family History Summary: Family History Reviewed: 08/07/2021 Medical Problems for Father, Essential Tremor Disorder; Parkinsonism Family History of Diabetes for Father Family History of Seizures for Aunt, Macie (paternal) Family History of Arthritis for Aunt Family History of Other Medical Problems for Aunt, Tanikaasa (paternal): Raynaud's phenomenon, adrenal gland exhaustion, appendicitis, arthritis Yue (paternal): nephritis, scleritis, ulcerative colitis, autoimmune hepatitis, thyroiditis, fibromyalgia, appendicitis, cholectomy, bronchiectasis, esophageal dysmotility, currently being tested for lupus and scleroderma. - Family History of Other Cancer for Uncle, Prostate cancer x2 maternal uncles Family History of Other Cancer for Maternal Grandfather Family History of Breast Cancer for Paternal Grandmother Family History of Arthritis for Paternal Grandmother Family History of Kidney/Renal Disease for Paternal Grandmother, kidney cancer ROS: per HPI, otherwise remaining systems are negative. PE: VS: 98.6 103 125/55 16 GEN: NAD HEAD: NCAT EYES: No scleral icterus or conjunctival injection CV: mild tachycardia RESP: normal effort ABD: S&NT/ND PSYCH: appropriate affect NEURO: alert and oriented, normal gait and coordination EXT: WWP PELVIC: No gross LOF. Neg pooling per RN exam ROM+ negative EFM 140 mod damaso 15x15 accels no decels TOCO: quiet A/P: Patient is a 21 yo at 35+1 wga who presents for assessment of membrane status in the setting of new onset oligohydramnios. ROM+ negative No physical evidence of membrane rupture Cont with twice weekly NST and weekly BPP Cat I tracing. DOS: 01/28/22 NST reaad 01/28/22 DX: IUP at 35+1 wga CHTN oligohydramnios
== END 2022-01-28 14:15 | disposition home or self-care (01) ==
LOC: WFO 12:01 → FBP 12:03 → WFO 14:15
PROVIDERS: ATTEND Obstetrics & Gynecology
DX: N89.8 Other specified noninflammatory disorders of vagina (principal); O41.03X0 Oligohydramnios, third trimester, not applicable or unspecified; O99.013 Anemia complicating pregnancy, third trimester; O16.3 Unspecified maternal hypertension, third trimester; Z3A.35 35 weeks gestation of pregnancy
CPT/HCPCS: 59025; 84112; 99215

== ENCOUNTER 2022-01-30 13:52 | Outpatient (CLI) | payer BC, OTHER ==
[2022-01-30 14:15] VITALS: BP 116/71
[2022-01-30 15:22] LABS: RUPTURE OF MEMBRANES PLUS NEGATIVE (NEGATIVE)
--- NOTE | 2022-01-30 16:13 | Ultrasound Report ---
PROCEDURE: OB Limited INDICATIONS: oligohydramnios OUTSIDE/PRIOR DATING DATA: Last menstrual period (LMP): May 27, 2021. LMP-based estimated date of delivery (MIRA): March 03, 2022. First dating scan (date ): July 31, 2021. Estimated date of delivery (MIRA) from first dating scan: March 03, 2022. TECHNIQUE: Real-time scanning was performed of the fetus, with image documentation. COMPARISON: Prior studies dating back to January 20, 2022. FINDINGS: A single living intrauterine gestation is present. Presentation: Vertex Placenta: Placental position is anterior, without previa. Amniotic fluid index: 7.2 cm. Largest pocket: 3.8 cm; previously 3.9 cm. heart rate: 148 beats per minutes. Maternal cervical canal: 4.2 cm long; normal length is 2.5 cm or more. Estimated gestational age from initial scan: 35 weeks, 3 days. IMPRESSION: Live single intrauterine gestation as detailed above. Reviewed by: Buster Pike MD on 01/30/2022 4:12 PM PDT Approved by: Buster Pike MD on 01/30/2022 4:12 PM PDT Station ID: [id number]
--- NOTE | 2022-01-30 18:03 | PROCEDURE REPORT ---
- HPI Diagnosis/Indication for NST: Gestational Hypertension Current EDU 03/03/22 Gestation 35 Weeks and 3 Days 2 Para 0 Vital Signs Temperature 98.1 F 01/30/22 14:06 Heart Rate 98 01/30/22 14:06 Respiratory Rate 18 01/30/22 14:06 Blood Pressure 116/71 01/30/22 14:06 Temperature 98.1 F 01/30/22 16:00 Heart Rate 98 01/30/22 16:00 Respiratory Rate 18 01/30/22 16:00 Blood Pressure 116/71 01/30/22 16:00 O2 Saturation 98 01/30/22 14:15 - NST Procedure NST Procedure Start Date 01/30/22 Start Time 14:00 Stop Time 14:31 Vibroacoustic Stimulation Used Yes: x1 Patient States Movement Yes EFM 145 mod damaso 15x15 accels no decels TOCO: quiet - Results and Plan Plan: Patient is a 21 yo at 35+3 wga with affected by chronic hypertension in the setting of new onset oligohydramnios here for NST. Repeated ROM+ and CODEY today ROM+ negative No physical evidence of membrane rupture CODEY improved at 7.2 with MVP 3.8 Cont with twice weekly NST and weekly BPP Has fu us early next week Cat I tracing. DOS: 01/30/22 NST read 01/30/22 DX: IUP at 35+3 wga CHTN oligohydramnios
== END 2022-01-30 16:28 | disposition home or self-care (01) ==
LOC: WFO 13:52 → FBP 13:53 → WFO 16:28
PROVIDERS: ATTEND Obstetrics & Gynecology
DX: O13.3 Gestational [pregnancy-induced] hypertension without significant proteinuria, third trimester (principal); O41.03X0 Oligohydramnios, third trimester, not applicable or unspecified; Z3A.35 35 weeks gestation of pregnancy
CPT/HCPCS: 59025; 84112; 99214

== ENCOUNTER 2022-02-03 09:58 | Outpatient (CLI) | payer BC, OTHER ==
[2022-02-03 10:49] VITALS: BP 129/86
--- NOTE | 2022-02-03 14:01 | PROCEDURE REPORT ---
- HPI Current [facility] 03/03/22 Gestation 36 Weeks and 0 Days 2 Para 0 Vital Signs Temperature 97.9 F 02/03/22 10:45 Heart Rate 106 H 02/03/22 10:45 Respiratory Rate 16 02/03/22 10:45 Blood Pressure 129/86 H 02/03/22 10:45 Temperature 97.9 F 02/03/22 10:45 Heart Rate 106 H 02/03/22 10:45 Respiratory Rate 16 02/03/22 10:45 Blood Pressure 129/86 H 02/03/22 10:45 O2 Saturation - NST Procedure NST Procedure Start Date 02/03/22 Start Time 10:40 Stop Time 11:10 Vibroacoustic Stimulation Used No Patient States Movement Yes - Results and Plan Findings/Impression: heart rate baseline-140 beats per minutes Moderate variability Accelerations 15x15 bpm Decelerations none Contractions absent NST reactive and reassuring Plan: 21-year-old at 36 weeks 0 days who presents for scheduled NST for history of chronic hypertension. Chronic hypertensionblood pressure within normal limits. NST reactive and reassuring. Patient reportedly had ultrasound today to follow-up for oligohydramnios. Ultrasound reports pending.
--- NOTE | 2022-02-03 17:26 | Ultrasound Report ---
PROCEDURE: OB Biophysical Profile INDICATIONS: HYPERTENSION OUTSIDE/PRIOR DATING DATA: Last menstrual period (LMP): 05/27/2021. LMP-based estimated date of delivery (MIRA): 03/03/2022. First dating scan (date and location): 07/31/2021. Estimated date of delivery (MIRA) from first dating scan: 03/03/2022. The below data below was generated using the ultrasound MIRA of 03/03/2022 TECHNIQUE: Real-time scanning was performed of the fetus, with image documentation and biometric ashu surements. Biophysical profile was also obtained. COMPARISON: OB ultrasound 01/30/2022 FINDINGS: General: A single living intrauterine gestation is present. Presentation: Vertebral Placenta: Placental position is anterior, without previa. Amniotic fluid index: 7.7 cm, within normal limits for gestational age. Largest pocket 3.1 cm heart rate: 157 beats per minute. Maternal cervical canal: 4.0 cm long; normal length is 2.5 cm or more. biometrics: Estimated gestational age from initial scan: 36 weeks 0 days Biophysical profile: Tone: 2 points. Movement: 2 points. Respiration: 2 points. Largest pocket of fluid: 2 points. Umbilical artery Doppler: 2.6, 2.0, 2.1 IMPRESSION: Single live intrauterine with ultrasound gestational age 36 weeks 0 days. BPP 8 out of 8 Reviewed by: Bryanna Kan MD on 02/03/2022 5:24 PM PDT Approved by: Bryanna Kan MD on 02/03/2022 5:24 PM PDT Station ID: [id number]
== END 2022-02-03 11:10 | disposition home or self-care (01) ==
LOC: DI 09:58 → FBP 10:35 → WFO 11:10
PROVIDERS: ATTEND Obstetrics & Gynecology
DX: O13.3 Gestational [pregnancy-induced] hypertension without significant proteinuria, third trimester (principal); O41.03X0 Oligohydramnios, third trimester, not applicable or unspecified; Z3A.36 36 weeks gestation of pregnancy
CPT/HCPCS: 59025

== ENCOUNTER 2022-02-06 08:00 | Outpatient (CLI) | payer BC, OTHER ==
--- NOTE | 2022-02-06 18:45 | PROCEDURE REPORT ---
- HPI Diagnosis/Indication for NST: Gestational Hypertension - NST Procedure NST Procedure Start Time 13:18 Stop Time 11:10 - Results and Plan Findings/Impression: Duplicate
== END 2022-02-06 23:59 | disposition home or self-care (01) ==
LOC: LAB.R 08:00
PROVIDERS: ATTEND Obstetrics & Gynecology
DX: Z36.85 Encounter for antenatal screening for Streptococcus B (principal)
CPT/HCPCS: 87797

== ENCOUNTER 2022-02-06 13:02 | Outpatient (CLI) | payer BC, OTHER ==
[2022-02-06 13:23] VITALS: BP 117/67
--- NOTE | 2022-02-06 18:49 | PROCEDURE REPORT ---
- HPI Diagnosis/Indication for NST: Gestational Hypertension Current EDU 03/03/22 Gestation 36 Weeks and 3 Days Vital Signs Temperature 98.6 F 02/06/22 13:18 Heart Rate 112 H 02/06/22 13:18 Respiratory Rate 18 02/06/22 13:18 Blood Pressure 117/67 02/06/22 13:18 Temperature 98.6 F 02/06/22 14:05 Heart Rate 112 H 02/06/22 13:18 Respiratory Rate 18 02/06/22 13:18 Blood Pressure 117/67 02/06/22 13:18 O2 Saturation - NST Procedure NST Procedure Start Date 02/06/22 Start Time 13:18 Stop Time 14:10 Vibroacoustic Stimulation Used No Patient States Movement Yes - Results and Plan Findings/Impression: heart rate baseline-135 beats per minutes Moderate variability Accelerations 15 x15 BPM Decelerations none Contractions none NST reactive and reassuring Plan: 21-year-old at 36 weeks 3 days who presents for scheduled NST for history of chronic hypertension. Chronic hypertensionblood pressure within normal limits. NST reactive and reassuring. Continue twice-weekly testing.
== END 2022-02-06 14:15 | disposition home or self-care (01) ==
LOC: WFO 13:02 → FBP 13:05 → WFO 14:15
PROVIDERS: ATTEND Obstetrics & Gynecology
DX: O16.9 Unspecified maternal hypertension, unspecified trimester (principal); Z36.85 Encounter for antenatal screening for Streptococcus B; Z3A.36 36 weeks gestation of pregnancy
CPT/HCPCS: 59025; 87797

== ENCOUNTER 2022-02-08 13:22 | Outpatient (CLI) | payer BC, OTHER ==
[2022-02-08 13:58] VITALS: BP 123/73
[2022-02-08 14:09] LABS: BASOPHILS % (AUTO) 0.3 %; EOSINOPHILS # (AUTO) 0.1 10^3/uL (0.0-0.7); EOSINOPHILS % (AUTO) 0.8 %; HCT - HEMATOCRIT 31.8 % (37.0-47.0); HGB - HEMOGLOBIN 10.7 g/dL (12.0-16.0); LYMPHOCYTES % (AUTO) 22.4 %; MEAN CORPUSCULAR HGB CONC 33.6 g/dL (32.0-36.0); MEAN CORPUSCULAR VOLUME 80.1 fL (81.0-99.0); MEAN PLATELET VOLUME 9.7 fL (7.9-10.8); MONOCYTES # (AUTO) 0.8 10^3/uL (0.0-1.0); MONOCYTES % (AUTO) 8.9 %; NEUTROPHILS % (AUTO) 67.4 %; PLT - PLATELET COUNT 257 10^3/uL (130-450); RED BLOOD COUNT 3.97 10^6/uL (4.20-5.40); RED CELL DISTRIBUTION WIDTH 13.2 % (12.0-15.0); WHITE BLOOD COUNT 8.9 x10^3/uL (4.8-10.8)
[2022-02-08 14:22] LABS: ALBUMIN/GLOBULIN RATIO 0.9 (1.0-2.2); BILIRUBIN,TOTAL 0.5 mg/dL (0.2-1.0); CALCIUM 8.6 mg/dL (8.5-10.3); CREATININE 0.7 mg/dL (0.4-1.0); POTASSIUM 3.8 mmol/L (3.5-5.0); TOTAL PROTEIN 6.3 g/dL (6.7-8.2)
[2022-02-08 14:40] LABS: CREATININE,URINE 158.8 mg/dL; PROTEIN/CREATININE RATIO,URINE 0.1 (<=0.2)
--- NOTE | 2022-02-08 15:04 | PROVIDER PROGRESS NOTE ---
- HPI Chief Complaint: Decreased movement (Patient presents with complaints of decreased movement. She reports she only felt 1 kick while doing her kick count today. She also notes headache. She reports occasional vision changes with spots in her vision and right upper quadrant pain.) Current : Vital Signs Temperature 99.0 F 02/08/22 13:32 Heart Rate 94 02/08/22 13:32 Respiratory Rate 18 02/08/22 13:32 Blood Pressure 139/83 H 02/08/22 13:32 Temperature 99.0 F 02/08/22 13:32 Heart Rate 88 02/08/22 13:56 Respiratory Rate 18 02/08/22 13:32 Blood Pressure 123/73 02/08/22 13:56 O2 Saturation - Exam General- no acute distress Respiratoryno respiratory distress Abdomen- soft, nontender, gravid - Procedures OB Procedure Performed: NST Diagnosis/Indication for NST: Decreased movement NST Procedure: NST Procedure Start Time 1328 Stop Time 1410 Service Date of procedure: 02/08/22 Findings: heart rate baseline-140 beats per minutes Moderate variability Accelerations 15x15 BPM Decelerations none Contractions none NST reactive and reassuring - Plan Plan: 21-year-old G2, P0 Ab1 at 36 weeks 5 days who presents with complaints of decreased movement. #Decreased movementthe patient appreciated movement during monitoring. Her NST was reactive and reassuring. #Chronic hypertensionblood pressure within normal limits on presentation. Taking labetalol at home. Preeclampsia labs done due to patient's symptoms. Labs within normal limits. Urine protein creatinine ratio of 0.1. Patient was again given preeclampsia warnings. She reported a mild headache but declined Tylenol. She will try Tylenol at home if needed.She was told to return to the ED for persistent headaches vision changes or abdominal pain.
== END 2022-02-08 15:10 | disposition home or self-care (01) ==
LOC: WFO 13:22 → FBP 13:23 → WFO 15:10
PROVIDERS: ATTEND Obstetrics & Gynecology
DX: O36.8130 Decreased fetal movements, third trimester, not applicable or unspecified (principal); O16.3 Unspecified maternal hypertension, third trimester; Z3A.36 36 weeks gestation of pregnancy; O99.891 Other specified diseases and conditions complicating pregnancy; R51.9 Headache, unspecified; H53.9 Unspecified visual disturbance
CPT/HCPCS: 36415; 59025; 80053; 82570; 84156; 85025; 99214; 99215

== ENCOUNTER 2022-02-10 09:01 | Outpatient (CLI) | payer BC, OTHER ==
[2022-02-10 09:54] VITALS: BP 130/78
--- NOTE | 2022-02-10 19:12 | PROCEDURE REPORT ---
- HPI Diagnosis/Indication for NST: Pre- Hypertension Current EDU 03/03/22 Gestation 37 Weeks and 0 Days 2 Para 0 Vital Signs Temperature 209.5 F H 02/10/22 09:44 Heart Rate 98 02/10/22 09:44 Respiratory Rate 16 02/10/22 09:44 Blood Pressure 130/78 02/10/22 09:44 Temperature 209.5 F H 02/10/22 10:20 Heart Rate 98 02/10/22 10:20 Respiratory Rate 16 02/10/22 10:20 Blood Pressure 130/78 02/10/22 10:20 O2 Saturation - NST Procedure NST Procedure Start Date 02/10/22 Start Time 09:47 Stop Time 10:18 Vibroacoustic Stimulation Used No Patient States Movement Yes EFM 135 mod damaso 15x15 accels no decels TOCO: quiet - Results and Plan Findings/Impression: Patient is a 21 yo at 37+0 wga with chronic hypertension here for NST and BPP NST Cat I BPP showed oligohydramnios with CODEY 3.5 Patient is being admitted for IOL DX: IUP at 37 wga chronic hypertension oligohydramnios NST read 02/10/22 DOS: 02/10/22
--- NOTE | 2022-02-10 20:26 | Ultrasound Report ---
PROCEDURE: OB Biophysical Profile INDICATIONS: HYPERTENSION OUTSIDE/PRIOR DATING DATA: Last menstrual period (LMP): 05/27/2021. LMP-based estimated date of delivery (MIRA): 03/03/2022. First dating scan (date and location): 07/31/2021. Estimated date of delivery (MIRA) from first dating scan: 03/03/2022. The below data below was generated using the ultrasound MIRA of 03/03/2022 TECHNIQUE: Real-time scanning was performed of the fetus, with image documentation and biometric ashu surements. Biophysical profile was also obtained. COMPARISON: OB ultrasound 02/03/2022, 07/31/2021 FINDINGS: General: A single living intrauterine gestation is present. Presentation: First Placenta: Placental position is anterior, without previa. Amniotic fluid index: 3.7 cm, within normal limits for gestational age. Largest pocket 2.5 cm heart rate: 162 beats per minute. Maternal cervical canal: Not well seen biometrics: Estimated gestational age from initial scan: 37 weeks 0 days Biophysical profile: Tone: 2 points. Movement: 2 points. Respiration: 2 points. Largest pocket of fluid: 2 points. Umbilical artery Doppler: 2.1, 2.0, 2.5 Miscellaneous: Nuchal cord is noted. IMPRESSION: Single live intrauterine with ultrasound gestational age of 37 weeks 0 days. Nuchal cord is noted. BPP 8 out of 8. Reviewed by: Bryanna Kan MD on 02/10/2022 8:25 PM PDT Approved by: Bryanna Kan MD on 02/10/2022 8:25 PM PDT Station ID: [id number]
== END 2022-02-10 10:20 | disposition home or self-care (01) ==
LOC: DI 09:01 → FBP 09:38 → DI 10:20
PROVIDERS: ATTEND Obstetrics & Gynecology
DX: O10.913 Unspecified pre-existing hypertension complicating pregnancy, third trimester (principal); O41.03X0 Oligohydramnios, third trimester, not applicable or unspecified; Z3A.37 37 weeks gestation of pregnancy; O09.93 Supervision of high risk pregnancy, unspecified, third trimester; O24.414 Gestational diabetes mellitus in pregnancy, insulin controlled
CPT/HCPCS: 59025

== ENCOUNTER 2022-02-10 12:34 | Inpatient (IN) | payer BC, OTHER ==
[2022-02-10] MEDS ORDERED: TRANEXAMIC ACID IN NACL 1,000 MG/100 ML BAG IV PRN (12:41)
[2022-02-10] MEDS ORDERED: METHYLERGONOVINE 0.2 MG/ML VIAL IM PRN (12:41)
[2022-02-10] MEDS ORDERED: LIDOCAINE-MPF 1% 30 ML VIAL ID PRN (12:41)
[2022-02-10] MEDS ORDERED: TERBUTALINE 1 MG/ML VIAL SUBQ PRN (12:41)
[2022-02-10] MEDS ORDERED: OXYTOCIN/SODIUM CHLORIDE 500 ML IV PRN (12:41)
[2022-02-10] MEDS ORDERED: NIFEdipine 10 MG CAPSULE PO PRN (12:41)
[2022-02-10] MEDS ORDERED: miSOPROStoL 200 MCG TABLET PR PRN (12:41)
[2022-02-10] MEDS ORDERED: OXYTOCIN 10 UNIT/ML VIAL IM PRN (12:41)
[2022-02-10] MEDS ORDERED: SODIUM CHLORIDE FLUSH 0.9% 10 ML SYRINGE IVP PRN (12:41)
[2022-02-10] MEDS ORDERED: miSOPROStoL 200 MCG TABLET BC PRN (12:41)
[2022-02-10] MEDS ORDERED: CARBOPROST TROMETHAMINE 250 MCG/ML AMP IM PRN (12:41)
[2022-02-10] MEDS ORDERED: LABETALOL 20 MG/4 ML SYRINGE IVP PRN ×3 (12:41)
[2022-02-10] MEDS ORDERED: hydrALAZINE INJ 20 MG/ML VIAL IVP PRN ×2 (12:41)
[2022-02-10 16:11] LABS: BASOPHILS % (AUTO) 0.3 %; EOSINOPHILS # (AUTO) 0.1 10^3/uL (0.0-0.7); EOSINOPHILS % (AUTO) 0.8 %; HCT - HEMATOCRIT 33.5 % (37.0-47.0); HGB - HEMOGLOBIN 10.9 g/dL (12.0-16.0); LYMPHOCYTES # (AUTO) 2.4 10^3/uL (1.5-3.5); LYMPHOCYTES % (AUTO) 21.3 %; MEAN CORPUSCULAR HEMOGLOBIN 26.4 pg (27.0-31.0); MEAN CORPUSCULAR HGB CONC 32.5 g/dL (32.0-36.0); MEAN CORPUSCULAR VOLUME 81.1 fL (81.0-99.0); MONOCYTES # (AUTO) 0.7 10^3/uL (0.0-1.0); MONOCYTES % (AUTO) 6.4 %; NEUTROPHILS % (AUTO) 70.8 %; PLT - PLATELET COUNT 287 10^3/uL (130-450); RED BLOOD COUNT 4.13 10^6/uL (4.20-5.40); RED CELL DISTRIBUTION WIDTH 13.3 % (12.0-15.0); WHITE BLOOD COUNT 11.3 x10^3/uL (4.8-10.8)
--- NOTE | 2022-02-10 17:26 | HISTORY & PHYSICAL EXAMINATION ---
Admit History - Visit Reason Visit Reason: Other (Oligohydramnios) - Smoking Status: Never smoker - Other Maternal History Other Maternal History: ID: Patient is a 21 yo at 37+0 wga with complicated by CHTN and hx of 2nd trimester loss now with oligohydramnios HPI: Patient has had borderline CODEY over the last few weeks. She presented for NST and BPP today given hx of CHTN of labetalol 50 mg po bid. CODEY today was 3.7 cm. The decision was made to proceed with IOL for CHTN and oligohydramnios. + FM, Denies LOF/VB/CTX. GBS negative on 02/06/22 PNC: LMP:05/27/2021 MIRA BY LMP:03/03/2022 Initial U/S on 07/31 @ 9w 2d c/w LMP FINAL MIRA: 03/03/2022 hx IUFD: labs wnl -Possible uterine perforation with pp D&C -Request for outside previously sent [place] anemia: once daily iron and vit C ordered CHTN: Monitoring at home. -Labetalol 100 mg po BID--> pt reduced dose to 50 mg po bid due to low DBPS -Ordered us for growth at 32 weeks on 12/10/21 for week for 01/10/22 EFW 44.3% on 01/06/22 -Twice weekly NST/BPP ordered. O pos/Rubella : IMMUNE VZV: IMMUNE Genetic testing: Declined testing And MFM consult- confirmed FAS: 10/18/2021 anterior, 3VC, 5.7 CL, FAS wnl, need fu for spine and facies. her fu us was normal. FAS complete.GIRL- [place] Glucola - Early glucola 103, 1 hour gtt 117 Influenza: declines Covid vaccine: declines TDAP:12/10/21 GBS:neg on 02/06/22 HSV: Denies self and partner Breast pump Rx: given 11/26/21 MOD: anticipate , Jose Manuel. 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 Safe at home Family History Summary: Family History of Other Medical Problems for Father, Essential Tremor Disorder; Parkinsonism - Family History of Diabetes for Father Family History of Seizures for Aunt, Macie (paternal) Family History of Arthritis for Aunt Family History of Other Medical Problems for Aunt, Ania (paternal): Raynaud's phenomenon, adrenal gland exhaustion, appendicitis, arthritis Yue (paternal): nephritis, scleritis, ulcerative colitis, autoimmune hepatitis, thyroiditis, fibromyalgia, appendicitis, cholectomy, bronchiectasis, esophageal dysmotility, currently being tested for lupus and scleroderma. - Entered On: 07/09/2021 Family History of Other Cancer for Uncle, Prostate cancer x2 maternal uncles - Family History of Other Cancer for Maternal Grandfather - Family History of Breast Cancer for Paternal Grandmother Family History of Arthritis for Paternal Grandmother Family History of Kidney/Renal Disease for Paternal Grandmother, kidney cancer Family History of Arthritis for Paternal Grandfather, Rheumatoid Family History of Diabetes for Paternal Grandfather ROS: As per HPI, otherwise remaining systems are negative. PE: VS: 98.2 96 128/82 16 GEN: NAD HEAD: NCAT EYES: No scleral icterus or conjunctival injection CV: RRR RESP: CTAB, normal effort ABD: S&NT/ND PSYCH: appropriate affect NEURO: alert and oriented, normal gait and coordination EXT: WWP EFM 145 mod damaso 15x15 accels no decels TOCO: Quiet Vertex by formal us A/P: 21 yo at 37+0 wga with CHTN and oligohydramnios IOL: Cervical ripening with misoprostol 25 mcg BC Q4H for up to 6 doses -Ok to increase to 50 mcg if 25 mcg well tolerated Consider Scherer balloon placement Pitocin when favorable AROM as indicated PAIN: Epidural as desired OK to nitrous oxide but NOT to be given with fentanyl Fentanyl max cumulative dose 200 mcg and not to be givne after 7 cm FWB: well grown, vertex, GBS neg, Cat I tracing -CEFM Observation until starting pitocin, epidural placed, or ruptured- then convert to in-patient care Meds/Allgy - Allergies Allergies/Adverse Reactions: Allergies Allergy/AdvReac Type Severity Reaction Status Date / Time No Known Drug Allergies Allergy Verified 10/30/21 21:57 Physical - Abdominal Exam Vital Signs: Temp Pulse Resp BP Pulse Ox 98.2 F 96 16 120/82 H 02/10/22 12:47 02/10/22 12:47 02/10/22 12:47 02/10/22 12:47
[2022-02-10] MEDS: LABETALOL 100 MG TABLET PO SCH (18:19)
[2022-02-10] MEDS: miSOPROStoL 100 MCG TABLET BC SCH ×2 (19:12→23:31)
[2022-02-10] MEDS ORDERED: LABETALOL 100 MG TABLET PO SCH (21:00)
--- NOTE | 2022-02-11 00:24 | PROVIDER PROGRESS NOTE ---
Subjective - Prog Note Date Prog Note Date: 02/11/22 Prog Note Time: 00:22 - Subjective Subjective: Has received 2 doses of misoprostol 25 mcg BC. EFM 130 mod damaso 15x15 accels no decels TOCO: quiet Cat I tracing Cont with cervical ripening Objective - Vital Signs/Intake & Output Intake & Output: Intake & Output 02/08/22 02/09/22 02/10/22 02/11/22 23:59 23:59 23:59 23:59 Intake Total 400 Balance 400 - Lab Results Fish Bones: 02/10/22 15:50 Other Labs: Lab Results x24hrs 02/10/22 02/10/22 Range/Units 15:50 15:50 WBC 11.3 H (4.8-10.8) x10^3/uL RBC 4.13 L (4.20-5.40) 10^6/uL Hgb 10.9 L (12.0-16.0) g/dL Hct 33.5 L (37.0-47.0) % MCV 81.1 (81.0-99.0) fL MCH 26.4 L (27.0-31.0) pg MCHC 32.5 (32.0-36.0) g/dL RDW 13.3 (12.0-15.0) % Plt Count 287 (130-450) 10^3/uL MPV 10.0 (7.9-10.8) fL Neut # (Auto) 8.0 H (1.5-6.6) 10^3/uL Lymph # (Auto) 2.4 (1.5-3.5) 10^3/uL [place] # (Auto) 0.7 (0.0-1.0) 10^3/uL Eos # (Auto) 0.1 (0.0-0.7) 10^3/uL Baso # (Auto) 0.0 (0.0-0.1) 10^3/uL Absolute Nucleated RBC 0.00 x10^3/uL Nucleated RBC % 0.0 /100WBC Blood Type O POSITIVE Antibody Screen NEGATIVE
[2022-02-11] MEDS: miSOPROStoL 100 MCG TABLET BC SCH ×6 (03:38→20:28)
[2022-02-11] MEDS: LABETALOL 100 MG TABLET PO SCH ×2 (05:44→18:01)
--- NOTE | 2022-02-11 10:38 | ANESTHESIA ---
Pre-Anesthesia VS, & Labs - Diagnosis active labor - Procedure labor epidural Vital Signs: Temp Pulse Resp BP Pulse Ox 36.8 C 96 16 120/82 H 02/10/22 12:47 02/10/22 12:47 02/10/22 12:47 02/10/22 12:47 Height: 5 ft 7 in Weight (kg): 120.656 kg Body Mass Index: 41.6 BMI Classification: Morbidly Obese - NPO >8 hours - Is Patient ?: Yes - Lab Results Current Lab Results: Laboratory Tests 02/10/22 15:50: WBC 11.3 H, RBC 4.13 L, Hgb 10.9 L, Hct 33.5 L, MCV 81.1, MCH 26.4 L, MCHC 32.5, RDW 13.3, Plt Count 287, MPV 10.0, Neut # (Auto) 8.0 H, Lymph # (Auto) 2.4, [place] # (Auto) 0.7, Eos # (Auto) 0.1, Baso # (Auto) 0.0, Absolute Nucleated RBC 0.00, Nucleated RBC % 0.0 02/10/22 15:50: Blood Type O POSITIVE, Antibody Screen NEGATIVE Lab results reviewed: Yes Fish Bones: 02/10/22 15:50 Home Medications and Allergies Active Medications Carboprost Tromethamine (Carboprost Tromethamine 250 Mcg/Ml Amp) 250 mcg IM .ONCE PRN PRN Reason: Hemorrhage Fentanyl (Fentanyl 100 Mcg/2 Ml Vial) 50 mcg IVP Q1H PRN PRN Reason: Severe Pain (score 7-10) Hydralazine HCl (Hydralazine Inj 20 Mg/Ml Vial) 5 - 20 mg IVP Q20M PRN; Pro tocol PRN Reason: SBP> or= 160 OR DBP> or= 110 Hydralazine HCl (Hydralazine Inj 20 Mg/Ml Vial) 10 mg IVP .ONCE PRN; Protocol PRN Reason: SBP> or= 160 OR DBP> or= 110 Oxytocin/Sodium Chloride (Pitocin/Sodium Chloride) 500 mls @ 999 mls/hr IV PRN PRN; Protocol PRN Reason: POST- HEMORR PREVENTION Tranexamic Acid (Tranexamic 1,000 Mg/100ml-Nacl) 1,000 mg in 100 mls @ 600 mls/hr IV Q30M PRN PRN Reason: EBL >1200mL and within 3hr Lactated Ringer's (Lr) 1,000 mls @ 100 mls/hr IV .Q10H PRN PRN Reason: per physician order Labetalol HCl (Labetalol 20 Mg/4 Ml Syringe) 20 - 80 mg IVP Q10M PRN; Protocol PRN Reason: SBP> or= 160 OR DBP> or= 110 Labetalol HCl (Labetalol 20 Mg/4 Ml Syringe) 20 mg IVP .ONCE PRN; Protocol PRN Reason: SBP> or= 160 OR DBP> or= 110 Labetalol HCl (Labetalol 20 Mg/4 Ml Syringe) 20 - 40 mg IVP Q10M PRN; Protocol PRN Reason: SBP> or= 160 OR DBP> or= 110 Labetalol HCl (Labetalol 100 Mg Tablet) 50 mg PO 0600,1800 [facility] Last Admin: 02/11/22 05:44 Dose: Not Given Lidocaine HCl (Lidocaine-Mpf 1% 30 Ml Vial) 30 ml ID ONCE PRN PRN Reason: PERINEAL REPAIR Stop: 02/11/22 12:41 Methylergonovine Maleate (Methylergonovine 0.2 Mg/Ml Vial) 0.2 mg IM .ONCE PRN PRN Reason: Hemorrhage Misoprostol (Misoprostol 200 Mcg Tablet) 600 mcg BC .ONCE PRN PRN Reason: Hemorrhage Misoprostol (Misoprostol 200 Mcg Tablet) 800 mcg [place] .ONCE PRN PRN Reason: Hemorrhage Misoprostol (Misoprostol 100 Mcg Tablet) 25 mcg BC Q4H [facility] Last Admin: 02/11/22 07:41 Dose: 25 mcg Nifedipine (Nifedipine 10 Mg Capsule) 10 - 20 mg PO Q20M PRN; Protocol PRN Reason: SBP> or= 160 OR DBP> or= 110 Oxytocin (Oxytocin 10 Unit/Ml Vial) 10 unit IM .ONCE PRN PRN Reason: Step One if no IV access. Sodium Chloride (Sodium Chloride Flush 0.9% 10 Ml Syringe) 10 ml IVP PRN PRN PRN Reason: NEEDED PER PROVIDER ORDERS Sodium Chloride (Sodium Chloride Flush 0.9% 10 Ml Syringe) 10 ml IVP Q8H [facility] Terbutaline Sulfate (Terbutaline 1 Mg/Ml Vial) 0.25 mg SUBQ .ONCE PRN PRN Reason: Tachystole Allergies/Adverse Reactions: Allergies Allergy/AdvReac Type Severity Reaction Status Date / Time No Known Drug Allergies Allergy Verified 10/30/21 21:57 Anes History & Medical History - Anesthetic History Anesthesia Complications: reports: No previous complications Family history of Anesthesia Complications: Denies Family history of Malignant Hyperthermia: Denies - Medical History Cardiovascular: reports: None Pulmonary: reports: None Gastrointestinal: reports: None Urinary: reports: None Neuro: reports: None Musculoskeletal: reports: None Endocrine/Autoimmune: reports: None Blood Disorders: reports: None Skin: reports: None Smoking Status: Never smoker Psychosocial: reports: No issues indicated Exam General: Alert, Oriented x3, Cooperative, No acute distress Dental: WNL Mouth Openin Fingerbreadth Neck Mobility: Normal Plan Anesthesia Type: Epidural Consent for Procedure(s) Verified and Reviewed: Yes Code Status: Attempt Resuscitation ASA classification: 2-Mild systemic disease Is this case an emergency?: No
--- NOTE | 2022-02-11 13:04 | PROVIDER PROGRESS NOTE ---
Subjective - Prog Note Date Prog Note Date: 02/11/22 Prog Note Time: 12:58 - Subjective Subjective: S: Patient has received 4 doses of miso 25 mcg to date. Had been mirlande frequently, 5th dose delayed until uterine contractions slow somewhat. Patient has been limiting activity 2/2 contraction pain. O: PE: VS: 138/71 87 98% 36.5 GEN: NAD HEAD: NCAT CV: RRR RESP: CTAB, normal effort ABD: gravid, S&NT/ND PSYCH: appropriate affect NEURO: alert and oriented, normal gait and coordination EXT: WWP SVE 50/med/mod/high per RN exam at 11:33 EFM 140 mod damaso 15x15 accels no decels TOCO: q2-3 min; palpate mild A/P: 21 yo at 37+1 with oligo here for IOL IOL: s/p miso 25 mcg x4 Remains unfavorable; will hold next dose until contractions space. Consider whitehead balloon when cervix more dilated. Encouraged mobilization. FWB: Cat I tracing Objective - Vital Signs/Intake & Output Intake & Output: Intake & Output 02/08/22 02/09/22 02/10/22 02/11/22 23:59 23:59 23:59 23:59 Intake Total 400 700 Balance 400 700 - Lab Results Fish Bones: 02/10/22 15:50 Other Labs: Lab Results x24hrs 02/10/22 02/10/22 Range/Units 15:50 15:50 WBC 11.3 H (4.8-10.8) x10^3/uL RBC 4.13 L (4.20-5.40) 10^6/uL Hgb 10.9 L (12.0-16.0) g/dL Hct 33.5 L (37.0-47.0) % MCV 81.1 (81.0-99.0) fL MCH 26.4 L (27.0-31.0) pg MCHC 32.5 (32.0-36.0) g/dL RDW 13.3 (12.0-15.0) % Plt Count 287 (130-450) 10^3/uL MPV 10.0 (7.9-10.8) fL Neut # (Auto) 8.0 H (1.5-6.6) 10^3/uL Lymph # (Auto) 2.4 (1.5-3.5) 10^3/uL [place] # (Auto) 0.7 (0.0-1.0) 10^3/uL Eos # (Auto) 0.1 (0.0-0.7) 10^3/uL Baso # (Auto) 0.0 (0.0-0.1) 10^3/uL Absolute Nucleated RBC 0.00 x10^3/uL Nucleated RBC % 0.0 /100WBC Blood Type O POSITIVE Antibody Screen NEGATIVE
[2022-02-11] MEDS: fentaNYL 100 MCG/2 ML VIAL IVP PRN ×3 (16:50→21:32)
[2022-02-11] MEDS: SODIUM CHLORIDE FLUSH 0.9% 10 ML SYRINGE IVP SCH ×2 (16:50→19:15)
[2022-02-11] MEDS ORDERED: fentaNYL 100 MCG/2 ML VIAL ONE (22:53)
[2022-02-11] MEDS ORDERED: ROPIVACAINE 0.2% 200 MG/100 ML BAG EP ONE (22:53)
[2022-02-11] MEDS ORDERED: BUPIVACAINE 0.25% PF 10 ML VIAL ONE (22:53)
[2022-02-11] MEDS: LACTATED RINGERS 1,000 ML IV PRN (22:55)
[2022-02-11] MEDS ORDERED: diphenhydrAMINE INJ 50 MG/ML VIAL IVP PRN (23:26)
[2022-02-11] MEDS ORDERED: ONDANSETRON 4 MG/2 ML VIAL IVP PRN (23:26)
[2022-02-11] MEDS ORDERED: ePHEDrine 50 MG/ML VIAL IVP PRN (23:26)
[2022-02-11] MEDS ORDERED: METOCLOPRAMIDE 10 MG/2 ML VIAL IVP PRN (23:26)
[2022-02-11] MEDS ORDERED: NALOXONE 0.4 MG/ML VIAL IVP PRN (23:26)
[2022-02-11] MEDS ORDERED: NALBUPHINE 10 MG/ML AMP IVP PRN (23:26)
[2022-02-11] MEDS ORDERED: ROPIVACAINE 0.2% 200 MG/100 ML BAG EP PRN (23:26)
[2022-02-12] MEDS ORDERED: OXYTOCIN/SODIUM CHLORIDE 500 ML IV SCH (01:00)
[2022-02-12] MEDS: LACTATED RINGERS 1,000 ML IV PRN (04:17)
[2022-02-12] MEDS: LABETALOL 100 MG TABLET PO SCH ×2 (05:55→19:31)
[2022-02-12] MEDS ORDERED: SIMETHICONE CHEW 80 MG TABLET PO PRN (12:06)
--- NOTE | 2022-02-12 12:07 | DELIVERY NOTE ---
Delivery Note - Labor Labor: positive: Induced by ARM, Induced by oxytocin - Infant Delivery Method Infant Delivery Method: positive: Spontaneous vaginal delivery - Cervical Ripening Method Cervical Ripening Method: positive: Misoprostil - Presentation Presentation: positive: Vertex - Nuchal Cord Nuchal Cord: positive: None - Anesthetic Anesthetic Type: - Amniotic Fluid Description Amniotic Fluid Description: positive: Clear - Episiotomy Type Episiotomy Type: positive: None - Laceration Laceration: positive: 1st degree - Suture Suture Type: positive: Vicryl Suture Size: positive: 3-0 - Delivery Outcome Delivery Outcome: positive: Livebirth - [place] sex: positive: Female - Cord Cord: positive: 3 vessels - Placenta Placenta: positive: Intact - Estimated Blood Loss Estimated Blood Loss (in cc): 250 - Post Delivery Events Post Delivery Events: positive: No post delivery events - Delivery Comments (Free Text/Narrative) Delivery Comments (Free Text/Narrative): Preoperative Diagnoses 21-year-old G1, P0 37 weeks gestation Chronic hypertension Oligohydramnios Induction of labor Postoperative Diagnoses Same Delivered Delivery Summary: Patient was pushing with the nurses when had began . Provider was notified. 3 minutes later, baby had a prolonged deceleration and mother was pushing and precipitously delivered a with the assistance of the nursing staff. I arrived at approximately 30 seconds of and allowed an additional 30 seconds of delayed clamping. Cord was then clamped x2 and cut. The placenta delivered intact with three vessel cord. Placenta was not sent to pathology. Thirty units of Pitocin were added to the IV fluid and allowed to run freely. Uterine massage was performed until uterus was deemed firm. Apgars of 9 at one minute and 9 at 5 minutes. Upon inspection of the perineum, a first-degree laceration was noted. This was repaired with a single stitch of 3-0 Vicryl. Upon re-inspection the patient was hemostatic. Uterus again massaged and found to be firm. Needle and sponge counts were correct. Patient was stable and allowed to recover in L&D room. was stable and remained in room with mother. weight is pending at this time.
[2022-02-12] MEDS: IBUPROFEN 600 MG TABLET PO SCH ×2 (12:56→19:25)
[2022-02-12] MEDS ORDERED: LACTATED RINGERS 1,000 ML IV SCH (13:00)
--- NOTE | 2022-02-12 13:17 | PROVIDER PROGRESS NOTE ---
Subjective - Prog Note Date Prog Note Date: 02/12/22 Prog Note Time: 08:45 - Subjective Subjective: S: Patient is very comfortable with epidural in place. Pitocin at 7 mU/min. Cat I tracing O: VS: 98.2 96 120/82 16 GEN: NAD HEENT: NCAT CV:RR ABD: gravid, S&NT SVE C/C/0 CAT I tracing AROM for clear fluid A/P: 21 yo at 37+1 wga undergoing IOL for oligo IOL: -S/p miso 25 mcg x6 -Pitocin at 7 mU/min -AROM for clear fluif -C/C/0 -Will labor down form one hour FWB: Vertex, Cat I tracing, GBS neg -Cat I tracing PAIN: well managed with epidural Anticipate Objective - Vital Signs/Intake & Output Intake & Output: Intake & Output 02/09/22 02/10/22 02/11/22 02/12/22 23:59 23:59 23:59 23:59 Intake Total 400 1199.5 496.667 Output Total 1025 Balance 400 1199.5 -528.333 - Lab Results Fish Bones: 02/10/22 15:50
[2022-02-12] MEDS: ACETAMINOPHEN 500 MG TABLET PO SCH (16:17)
[2022-02-12] MEDS: DOCUSATE SODIUM 100 MG CAPSULE PO PRN (23:16)
[2022-02-13] MEDS: ACETAMINOPHEN 500 MG TABLET PO SCH ×3 (00:12→18:00)
[2022-02-13] MEDS: IBUPROFEN 600 MG TABLET PO SCH ×4 (01:44→20:34)
[2022-02-13] MEDS: LABETALOL 100 MG TABLET PO SCH ×2 (07:56→21:55)
[2022-02-13] MEDS: DOCUSATE SODIUM 100 MG CAPSULE PO PRN ×2 (08:14→20:34)
--- NOTE | 2022-02-13 08:38 | PROVIDER PROGRESS NOTE ---
Subjective - Prog Note Date Prog Note Date: 02/13/22 - Subjective Pt reports feeling: Improved Subjective: Subjective Patient reports she is doing well. Lochia appropriate. Denies heavy bleeding. Ambulating. Pelvic and abdominal pain well-controlled. Tolerating oral intake. Diet: Regular. Voiding without difficulty. Passing flatus. Denies BM. Patient is bonding with baby in room Breast feeding going well. Denies feeling lightheaded, dizzy or excessively fatigued. Objective General: Alert, oriented, no apparent distress. Cardiovascular: Regular rate. Regular rhythm. Lungs: No increased work of breathing. Abdomen: Uterus firm. Below umbilicus. No guarding or rebound. Assessment and Plan day 1. -Routine care -Anticipate discharge tomorrow Chronic hypertension -Blood pressure remains controlled Objective - Vital Signs/Intake & Output Vital Signs: Vital Signs x48h Temp Pulse Resp BP BP Pulse Ox 02/13/22 07:30 98.1 F 76 17 129/63 98 02/13/22 03:40 97.5 F L 73 18 130/59 L 98 Intake & Output: Intake & Output 02/10/22 02/11/22 02/12/22 02/13/22 23:59 23:59 23:59 23:59 Intake Total 400 1199.5 2486.667 Output Total 1325 Balance 400 1199.5 1161.667 - Lab Results Fish Bones: 02/10/22 15:50
[2022-02-14] MEDS: ACETAMINOPHEN 500 MG TABLET PO SCH ×3 (02:57→18:29)
[2022-02-14] MEDS: IBUPROFEN 600 MG TABLET PO SCH ×4 (02:57→21:56)
[2022-02-14] MEDS: LABETALOL 100 MG TABLET PO SCH (07:07)
--- NOTE | 2022-02-14 08:16 | Discharge Plan ---
Discharge Plan Problem Reviewed?: Yes Disposition: Home, Self Care Condition: Good Diet: Regular Activity Restrictions: No Restrictions Instruction Topics: Vaginal After No Smoking: If you smoke, Please STOP! Call for help. Follow-up with: Jaylen Melvin MD [Provider Admit Priv/Credential] -
--- NOTE | 2022-02-14 08:21 | DISCHARGE SUMMARY ---
Discharge Summary Admit Date: 02/10/22 Discharge Date: 02/14/22 Discharging Provider: Jaylen Melvin MD Code Status: Attempt Resuscitation Condition at Discharge: Good Discharge Disposition: 01 Home, Self Care - DIAGNOSES Admission Diagnoses: 37 weeks gestation Chronic hypertension Discharge Diagnoses with Status of Each Condition: 37 weeks gestation: Delivered Chronic hypertension: Stable Status post spontaneous vaginal delivery. - HPI History of Present Illness: Patient doing well. Ambulating without difficultly. Tolerating PO. Voiding without difficulty. Bleeding is minimal. Pain is well controlled. going well. Bonding with baby. Objective: General: alert, oriented, no acute distress Pulm: No increased work of breathing Cardio: Regular rate and rhythm Abdomen: Soft, non-tender. Uterus firm and below umbilicus - HOSPITAL COURSE Hospital Course: Patient received misoprostol, oxytocin, amniotomy for labor induction. Had a quick second stage of labor and delivered precipitously. course was uneventful and was discharged on day 2. She continued on low dose labetolol for chronic hypertension, but will likely come off after as she has frequently skipped doses due to low blood pressures. discharged with mother. weight 2700 g. - ALLERGIES Allergies/Adverse Reactions: Allergies Allergy/AdvReac Type Severity Reaction Status Date / Time No Known Drug Allergies Allergy Verified 10/30/21 21:57 - MEDICATIONS Home Medications: Ambulatory Orders Medication Instructions Recorded Confirmed Acetaminophen [Acetaminophen Extra 1,000 mg PO Q8H PRN #60 tablet 02/14/22 Strength] Docusate Sodium 100Mg Capsule 100 - 200 mg PO BID PRN #60 cap 02/14/22 [Colace 100Mg Capsule] Ibuprofen [Motrin] 600 mg PO Q6H PRN #30 tab 02/14/22 - LABS Result Diagrams: 02/10/22 15:50 - FOLLOW UP Follow Up: with [facility] with [facility] in one week. - TIME SPENT Time Spent in Discharge (Minutes): 25
[2022-02-14] MEDS: DOCUSATE SODIUM 100 MG CAPSULE PO PRN ×2 (09:02→21:56)
[2022-02-14 21:56] VITALS: BP 136/74
--- NOTE | 2022-02-14 22:21 | Labor Flowsheet ---
Labor Flowsheet Datetime Report Generated by CPN: 02/14/2022 22:21 Datetime: 02/14/2022 21:50 VITAL SIGNS NBP Sys/Elizabeth/Mean (mmHg): 136 : 74 : 87 Pulse: 82 LaborFlag: Labor Datetime: 02/13/2022 19:39 SpO2 (%): 98 Datetime: 02/12/2022 10:39 COMMUNICATION Communication: Call/Page Placed to Provider Provider Notified (Name): Olegario Communication Comments: Provider called to come to bedside Datetime: 02/12/2022 10:36 UTERINE ACTIVITY Monitor Mode: External Frequency (min): 2-3 Quality: Moderate Duration (sec): 60 Pattern: Normal: <= 5 Contractions in 10 Minutes Resting Tone (Palpate): Relaxed ASSESSMENT A Monitor Mode: Telemetry FHR Baseline Rate : 135 Variability: Moderate 6-25 bpm Decelerations: Variable Category: Category II STAGE 2 Pushing: Coached on Pushing Pushing Position: Pushing with Contractions Pushing Progress: Descent with Pushing Datetime: 02/12/2022 10:30 Accelerations: 15X15 Datetime: 02/12/2022 09:06 Patient Position/Activity: Right Lateral Patient Care Comments: closed knee with peanut ball Datetime: 02/12/2022 09:01 VAGINAL EXAM Dilatation (cm): 9.5 Effacement (%): 100 Exam by: [facility] Membrane Status: Ruptured Membranes Rupture Method: Artificial Amniotic Fluid Color: Clear Amniotic Fluid Amount: Moderate Datetime: 02/12/2022 09:00 Contraction Comments: RN at bedside palpating ctx Datetime: 02/12/2022 07:30 Stage of : Labor Respirations: 17 Temperature (C): 36.8 Temperature Route: Oral Pitocin Checklist: At Least 1 Acceleration of 15 bpm x 15 Seconds in 30 Minutes or Adequate Variabi lity; No More than 1 Late Deceleration Occurred in Past 30 Minutes; No More than 2 Variable Decelerat ions > 60 Seconds in Duration and decreasing >60 bpm in 30 minutes; No More than 5 Uterine Contractio ns in 10 Minutes for any 20 Minute Interval; Uterus Palpates Soft between Contractions PAIN Pain Scale: 0 Pain Presence: None/Denies MATERNAL ASSESSMENT Level of Consciousness: Alert DTR's/Clonus: DTRs 1+ Headache: Denies Breath Sounds, Left: Clear and Equal Breath Sounds, Right: Clear and Equal Nausea/Vomiting: Denies RUQ Epigastric Pain: Denies MEDICATIONS Pitocin (milliunits): Increased to @ 7 Datetime: 02/12/2022 06:59 FHR Baseline Changes: No Baseline Change Datetime: 02/12/2022 04:58 Monitor Interventions for UA: [place] Adjusted Datetime: 02/11/2022 23:18 Epidural Procedure Other: Pump Started Datetime: 02/11/2022 23:10 Epidural Procedure: Completed Datetime: 02/11/2022 23:01 Anesthesia Comments: K. Jones LICENSED MENTAL HEALTH COUNSELOR Datetime: 02/11/2022 22:59 PROCEDURE TIME OUT Procedure Verify: Correct Patient Identity; Correct Side and Site are Marked; Accurate Procedure Co nsent Form; Agreement on Procedure to be Done; Correct Patient Position; Relevant Images and Results are Properly Labeled and Displayed; Addressed Need to Administer Antibiotics or Fluids for Irrigation ; Safety Precautions Based on Patient History or Medication Use ANESTHESIA Anesthesia Plans: Epidural Epidural Positioning: Sitting Datetime: 02/11/2022 22:53 PATIENT CARE IV/Blood Work: IV Started; IV Bolus Given ml @ 500cc bolus given per LICENSED MENTAL HEALTH COUNSELOR Datetime: 02/11/2022 22:30 Notification Reason: Status Update; Pain Datetime: 02/11/2022 21:34 Analgesics/Sedatives: Fentanyl (mcg) @ 50 Datetime: 02/11/2022 21:21 Pain Type: Contraction Datetime: 02/11/2022 21:07 Monitor Interventions for FHR: Ultrasound Adjusted Datetime: 02/11/2022 20:28 Cervical Ripening Agents: Cytotec @ Datetime: 02/11/2022 19:05 Pain Coping: Talking Through Contractions Pain Assessment Comments: Pt states her pain is 8. Requesting fentanyl I/O Interventions: Ice Chips Given; Clear Liquids Given Datetime: 02/11/2022 19:00 Oxygen Method: Room Air Datetime: 02/11/2022 18:23 Pain Location: Abdomen Comfort Measures: Breathing/Relaxation Datetime: 02/11/2022 18:01 Medication Comments: Labetalol 50mg PO Datetime: 02/11/2022 17:00 Comments: Poor FHR tracing at times Datetime: 02/11/2022 16:05 Station: -2 Vaginal Bleeding: None Cervix, Consistency: Moderate Cervix, Position: Posterior Datetime: 02/11/2022 15:53 Vaginal Exam Comments: Unable to reach patient's cervix Datetime: 02/11/2022 06:53 Pain Relief Measures: Comfort Measures Datetime: 02/11/2022 05:35 Vital Sign Comments: AM dose labetalol held Datetime: 02/10/2022 23:00 Strip Reviewed by: Leidanarinder Major, RN Datetime: 02/10/2022 13:29 TEACHING Instructional Method: Verbal Plan of Care: Plan of Care Discussed; Induction Unit Routine: [place] to Room; Call Franks; Bed; Visiting Policy; Medications Labor/Induction: Labor Stages; Cervical Ripening; Induction Medications: Cervical Ripening; Pitocin
== END 2022-02-14 22:19 | disposition home or self-care (01) | DRG 806 ==
LOC: WFO 12:34 → FBP 12:38 → WFO 12:40 → FBP 12:41 → OBSVTOIN 02-12 07:03
PROVIDERS: ADMIT Obstetrics & Gynecology; ATTEND Obstetrics & Gynecology
PROC: 10907ZC Drainage of Amniotic Fluid, Therapeutic from Products of Conception, Via Natural or Artificial Opening (ICD-10-PCS; principal; 2022-02-12)
PROC: 10E0XZZ Delivery of Products of Conception, External Approach (ICD-10-PCS; 2022-02-12)
PROC: 0HQ9XZZ Repair Perineum Skin, External Approach (ICD-10-PCS; 2022-02-12)
DX: O16.4 Unspecified maternal hypertension, complicating childbirth (principal); O41.03X0 Oligohydramnios, third trimester, not applicable or unspecified; Z37.0 Single live birth; O70.0 First degree perineal laceration during delivery; Z3A.37 37 weeks gestation of pregnancy; O99.214 Obesity complicating childbirth; E66.01 Morbid (severe) obesity due to excess calories; Z87.59 Personal history of other complications of pregnancy, childbirth and the puerperium; O99.02 Anemia complicating childbirth
CPT/HCPCS: 85025; 86850; 86900; 86901; A9270; G0378; J7120

== ENCOUNTER 2022-08-27 23:28 | Emergency (ER) | payer BC, OTHER ==
--- NOTE | 2022-08-28 00:54 | ED Physician Documentation ---
PD HPI Fall - Stated complaint Stated Complaint: FALL,VOMIT,HEADACHE - Chief complaint Chief Complaint: Neuro - History obtained from History obtained from: Patient - History of Present Illness Mechanism of injury: Lost balance Fall distance: Less than 5ft Where injury occurred: Home Timing - onset: Enter time (17:00) Injury(ies) location: Head Pain level now: 4 Quality of pain: Pain Associated symptoms: No: LOC, AMS, Amnesia, Neck pain, Weakness, Paresthesias, Nausea / vomiting Contributing factors: No: Anticoagulated, Intoxicated Recently seen: Not recently seen - Additional information Additional information: patient was hanging [place] lights around the eave of her house while standing on a ladder when, at approximately 5 PM she lost her balance and fell off the ladder. she estimates she fell 3-4 feet. She c/o right hand pain and right-sided headache. Denies LOC, denies vision changes, denies AMS. She notes mild nausea but no vomiting. Review of Systems Eyes: reports: Reviewed and negative Cardiac: reports: Reviewed and negative Respiratory: reports: Reviewed and negative GI: reports: Nausea. denies: Abdominal Pain, Vomiting Musculoskeletal: reports: Extremity pain (right hand). denies: Neck pain, Back pain Neurologic: reports: Headache. denies: Generalized weakness, Focal weakness, Numbness, Confused, Altered mental status, LOC PD PAST MEDICAL HISTORY - Past Medical History Cardiovascular: None Respiratory: None Neuro: None Endocrine/Autoimmune: None GI: None : None Musculoskeletal: None Derm: None - Present Medications Home Medications: Ambulatory Orders Medication Instructions Recorded Confirmed No Known Home Medications 08/27/22 08/27/22 - Allergies Allergies/Adverse Reactions: Allergies Allergy/AdvReac Type Severity Reaction Status Date / Time No Known Drug Allergies Allergy Verified 08/27/22 23:38 - Social History Smoking Status: Never smoker PD ED PE NORMAL - Vitals Vital signs reviewed: Yes - General General: Alert and oriented X 3, No acute distress, Well developed/nourished - HEENT HEENT: Atraumatic, PERRL, EOMI - Neck Neck: No bony TTP - Cardiac Cardiac: RRR, No murmur - Respiratory Respiratory: No respiratory distress, Clear bilaterally - Extremities Extremities: Other (flat echymosis with tenderness dorsum right hand ; TTP right wrist ulnar aspect) - Neuro Neuro: Alert and oriented X 3, account development representative 2-12 intact, No motor deficit, No sensory deficit, Normal speech Eye Opening: Spontaneous Motor: Obeys Commands Verbal: Oriented GCS Score: 15 Results - Vitals Vitals: Oxygen O2 Source Room air - Rads (name of study) right wrist xrays Radiology: Prelim report reviewed, See rad report right hand xrays Radiology: Prelim report reviewed, See rad report CTH Radiology: Prelim report reviewed, See rad report PD MEDICAL DECISION MAKING - ED course Complexity details: reviewed results, re-evaluated patient, considered differential, d/w patient ED course: No acute/concerning findings on CTH, plain film xrays of right wrist and hand. Placed in splint (right wrist/hand velcro) for stability and protection. Results reviewed/discussed with patient, return precautions discussed. Departure - Departure Disposition: 01 Home, Self Care Clinical Impression: Contusion, hand, Right wrist sprain, Head injury Condition: Good Instructions: ED Contusion Hand, ED Head Injury Closed, ED Sprain Wrist Comments: No evidence on xrays of any broken bones nor dislocations. The CT scan of your head was normal. You can take tylenol or ibuprofen as needed for pain (per label instructions). Discharge Date/Time: 08/28/22 02:23
--- NOTE | 2022-08-28 01:09 | XRAY Report ---
PROCEDURE: Hand 3 View RT INDICATIONS: Trauma TECHNIQUE: 3 views of the hand acquired. COMPARISON: Concurrent study of the right wrist. FINDINGS: Bones: No fractures or dislocations. No suspicious bony lesions. Soft tissues: No suspicious soft tissue calcifications. IMPRESSION: 1. No fracture or dislocation. Reviewed by: Gasper Pinedo MD on 08/28/2022 1:[address] [facility] Approved by: Gasper Pinedo MD on 08/28/2022 1:[address] [facility] Station ID: [id number]
--- NOTE | 2022-08-28 01:09 | XRAY Report ---
PROCEDURE: Wrist 4 View RT INDICATIONS: Trauma TECHNIQUE: 4 views of the wrist were acquired. COMPARISON: Concurrent study of the right hand. FINDINGS: Bones: No fractures or dislocations. No suspicious bony lesions. Scaphoid view: The scaphoid appears intact. Soft tissues: No suspicious soft tissue calcifications. IMPRESSION: 1. No fracture or dislocation. Reviewed by: Gasper Pinedo MD on 08/28/2022 1:17 AM [facility] Approved by: Gasper Pinedo MD on 08/28/2022 1:17 AM PST Station ID: [id number]
--- NOTE | 2022-08-28 02:00 | CT Report ---
PROCEDURE: HEAD WO INDICATIONS: head injury, n/v, visual changes, [place]ER[place] TECHNIQUE: Noncontrast 4.5 mm thick angled axial sections acquired from the foramen magnum to the vertex. For r adiation dose reduction, the following was used: automated exposure control, adjustment of mA and/or kV according to patient size. COMPARISON: None. FINDINGS: Image quality: Excellent. CSF spaces: Basal cisterns are patent. No extra-axial fluid collections. Ventricles are normal in size and shape. Brain: No intracranial hemorrhage, mass, or mass effect. Suarez-white matter interface appears preser nita. Skull and face: Calvarium and visualized facial bones are intact, without suspicious lesions. Sinuses: Visualized sinuses and mastoids are clear. IMPRESSION: 1. No acute intracranial abnormality. Reviewed by: Gasper Pinedo MD on 08/28/2022 1:59 AM [facility] Approved by: Gasper Pinedo MD on 08/28/2022 1:59 AM [facility] Station ID: [id number]
[2022-08-28 06:40] VITALS: BP 188/98
== END 2022-08-28 02:23 | disposition home or self-care (01) ==
LOC: ED 23:28
DX: S60.221A Contusion of right hand, initial encounter (principal); S63.501A Unspecified sprain of right wrist, initial encounter; S09.90XA Unspecified injury of head, initial encounter; W11.XXXA Fall on and from ladder, initial encounter; Y93.89 Activity, other specified; Y92.009 Unspecified place in unspecified non-institutional (private) residence as the place of occurrence of the external cause
CPT/HCPCS: 99282; 99284

== ENCOUNTER 2023-07-22 09:00 | Outpatient (CLI) | payer OTHER ==
[2023-07-22 15:53] LABS: BACTERIAL VAGINOSIS DNA NEGATIVE (NEGATIVE); CANDIDA GLABRATA DNA NEGATIVE (NEGATIVE); CANDIDA GROUP DNA NEGATIVE (NEGATIVE); CANDIDA KRUSEI DNA NEGATIVE (NEGATIVE); TRICHOMONAS VAGINALIS DNA NEGATIVE (NEGATIVE)
== END 2023-07-22 09:15 | disposition home or self-care (01) ==
LOC: LAB.N 09:00
PROVIDERS: ATTEND Family Medicine
DX: R30.0 Dysuria (principal)
CPT/HCPCS: 81514; 87086; 87181

== ENCOUNTER 2023-09-09 08:00 | Outpatient (CLI) | payer OTHER ==
[2023-09-09 17:26] LABS: BILIRUBIN,URINE NEGATIVE (NEGATIVE); GLUCOSE, URINE (UA) NEGATIVE (NEGATIVE); KETONES,URINE (UA) NEGATIVE (NEGATIVE); LEUKOCYTE ESTERASE, URINE TRACE (NEGATIVE); NITRITE,URINE NEGATIVE (NEGATIVE); OCCULT BLOOD,URINE TRACE-INTA (NEGATIVE); PROTEIN,URINE NEGATIVE (NEGATIVE); UROBILINOGEN,URINE 0.2 (NORMAL) E.U./dL (NORMAL)
[2023-09-09 17:59] LABS: CLARITY,URINE CLOUDY (CLEAR)
[2023-09-09 18:00] LABS: BACTERIA,URINE Many /HPF (None Seen); RBC,URINE 0-5 /HPF (0-5); SQUAMOUS EPITHELIAL CELL,UR MANY Squamous (<= Few)
== END 2023-09-09 23:59 | disposition home or self-care (01) ==
LOC: LAB.WC 08:00
PROVIDERS: ATTEND Nurse Practitioner
DX: Z34.80 Encounter for supervision of other normal pregnancy, unspecified trimester (principal)
CPT/HCPCS: 81001; 87086

== ENCOUNTER 2023-09-17 14:56 | Outpatient (CLI) | payer OTHER ==
[2023-09-17 15:12] LABS: BASOPHILS % (AUTO) 0.4 %; EOSINOPHILS # (AUTO) 0.1 10^3/uL (0.0-0.7); EOSINOPHILS % (AUTO) 1.4 %; HCT - HEMATOCRIT 38.8 % (37.0-47.0); HGB - HEMOGLOBIN 12.4 g/dL (12.0-16.0); LYMPHOCYTES # (AUTO) 2.7 10^3/uL (1.5-3.5); MEAN CORPUSCULAR HEMOGLOBIN 27.8 pg (27.0-31.0); MEAN PLATELET VOLUME 9.6 fL (7.9-10.8); MONOCYTES # (AUTO) 0.6 10^3/uL (0.0-1.0); MONOCYTES % (AUTO) 5.5 %; NEUTROPHILS # (AUTO) 6.6 10^3/uL (1.5-6.6); NEUTROPHILS % (AUTO) 65.5 %; PLT - PLATELET COUNT 320 10^3/uL (130-450); RED BLOOD COUNT 4.46 10^6/uL (4.20-5.40); RED CELL DISTRIBUTION WIDTH 12.8 % (12.0-15.0)
[2023-09-18 02:07] LABS: HBsAG SCREEN Negative (Negative)
[2023-09-18 03:09] LABS: RPR Non Reactive (Non Reactive)
[2023-09-18 04:08] LABS: HCV AB Non Reactive (Non Reactive)
[2023-09-18 06:09] LABS: HIV SCREEN 4TH GENERATION Non Reactive (Non Reactive)
[2023-09-18 09:08] LABS: VARICELLA-ZOSTER AB IGG 287 index (Immune >165)
== END 2023-09-17 14:57 | disposition home or self-care (01) ==
LOC: LAB 14:56
PROVIDERS: ATTEND Nurse Practitioner
DX: Z34.80 Encounter for supervision of other normal pregnancy, unspecified trimester (principal); Z36.89 Encounter for other specified antenatal screening
CPT/HCPCS: 36415; 85025; 86592; 86762; 86787; 86803; 86850; 86900; 86901; 87340; 87389

== ENCOUNTER 2023-09-17 15:57 | Outpatient (CLI) | payer OTHER ==
--- NOTE | 2023-09-18 08:39 | Ultrasound Report ---
PROCEDURE: OB First Trimester w/TV INDICATIONS: POSITIVE TEST OUTSIDE/PRIOR DATING DATA: Last menstrual period (LMP): 08/01/2023. LMP-based estimated date of delivery (MIRA): 05/07/2024. First dating scan (date and location): Today. Estimated date of delivery (MIRA) from first dating scan: 05/12/2024. TECHNIQUE: Real-time scanning was performed of the fetus and maternal pelvic organs, with image documentation. Endovaginal scanning was also performed to better visualize the fetus and maternal ovaries. COMPARISON: None. FINDINGS: Intrauterine gestational sac is present with yolk sac. [place]-rump length is 0.3 cm correspo nding to ultrasound age of 6 weeks. heart motion is detected, 95 bpm. Suspected right corpus luteum. IMPRESSION: Single living intrauterine at 6 weeks ultrasound age. heart motion detected, slower than expected, but difficult to evaluate due to small size. Atten tion on follow-up. Reviewed by: Álvaro Finn MD on 09/18/2023 8:37 AM PST Approved by: Álvaro Finn MD on 09/18/2023 8:37 AM PST Station ID: [id number]
== END 2023-09-17 15:58 | disposition home or self-care (01) ==
LOC: DI 15:57
PROVIDERS: ATTEND Nurse Practitioner
DX: Z34.81 Encounter for supervision of other normal pregnancy, first trimester (principal); Z36.89 Encounter for other specified antenatal screening
CPT/HCPCS: 36415; 85025; 86592; 86762; 86787; 86803; 86850; 86900; 86901; 87340; 87389